=== PATIENT | female | born 1935 | race Caucasian/White ===

== ENCOUNTER 2017-03-22 11:42 | Inpatient (IN) ==
[2017-03-22] MEDS ORDERED: D5% in Water 1,000 ML IVC PRN (16:04)
[2017-03-22] MEDS ORDERED: Dextrose Gel 15 GM/37.5 ML TUBE PO PRN ×2 (16:04)
[2017-03-22] MEDS ORDERED: *HR* Dextrose 50 % in Water (Syg) 50 ML SYRINGE IVP PRN (16:04)
[2017-03-22] MEDS ORDERED: Acetaminophen 325 MG TABLET PO PRN (16:09)
[2017-03-22] MEDS ORDERED: Naloxone 0.4 MG/ML INJ IVP PRN (16:09)
--- NOTE | 2017-03-22 16:15 | Internal Med History&Physical ---
Date of Encounter: 03/22/17 Time of Encounter: 16:13 Assessment and Plan (1) Acute respiratory failure with hypoxia Current visit: Yes Status: Acute Likely secondary to an acute exacerbation of heart failure. Possibly combined given history of hypertension and recent history of multiple coronary stents placed and a defibrillator. We will continue to treat CHF as mentioned below. Wean down on oxygen as tolerated. Continue nebulizer treatments. (2) Anemia Current visit: Yes Status: Acute No obvious signs of bleeding but her tongue is darkened. She denies any bleeding or hematemesis or hemoptysis. She denies hematochezia or black tarry stools. Hemoglobin is 6.6. The only number have to compare to his back in 2014 and at that point her hemoglobin was 12.8. I will try to get records from [facility] from previous admissions. We will check iron studies. Check stools for fecal occult. She was started on 1 unit PRBCs at [facility]. We will check post transfusion CBC. Check every 6 H&H. INR is elevated at 4.8 which is concerning however there is no obvious sign of bleeding. No indication for FFP so vitamin K at the moment. start PPI. Hold aspirin. Hold xarelto. She may need a consult to GI if H/H continues to drop but I would like to have her records sent first form [facility]. Qualifiers: Anemia type: unspecified type Qualified Code(s): D64.9 - Anemia, unspecified (3) Afib Current visit: Yes Status: Acute Continue with rate control. The patient is paced. Hold anticoagulation given her low hemoglobin. Qualifiers: Atrial fibrillation type: unspecified Qualified Code(s): I48.91 - Unspecified atrial fibrillation (4) BALDEV (acute kidney injury) Current visit: Yes Status: Acute Possibly from cardiorenal etiology. We will diurese the patient and check labs in the morning. This is cardiorenal I would expect her creatinine to improve. She also has a UTI per report which could also contribute to this. (5) UTI (urinary tract infection) Current visit: Yes Status: Acute Continue ceftriaxone. She has already received a dose at [facility]. We will repeat her urinalysis here. Follow up on cultures from [facility]. Qualifiers: Urinary tract infection type: acute cystitis Hematuria presence: without hematuria Qualified Code(s): N30.00 - Acute cystitis without hematuria (6) CHF exacerbation Current visit: Yes Status: Acute Likely combined CHF exacerbation Continue with diuresis. We will start Lasix 40 mg twice a day IV. She has received 60 mg IV at the outside facility. Continue with O2 support and wean down as tolerated. We will add nebulizer treatments. Monitor I&O's. Low-salt diet. Fluid restriction. Check an echocardiogram. Qualifiers: Congestive heart failure type: unspecified Qualified Code(s): I50.9 - Heart failure, unspecified (7) Diabetes mellitus Current visit: Yes Status: Acute Hold oral antidiabetics. Start insulin settings. Continue with Accu-Cheks. Qualifiers: Diabetes mellitus type: type 2 Diabetes mellitus complication status: without complication Diabetes mellitus skilled nursing insulin use: without emt intermediate use Qualified Code(s): E11.9 - Type 2 diabetes mellitus without complications (8) Hypertension Current visit: Yes Status: Acute Resume home blood pressure medications Qualifiers: Hypertension type: essential hypertension Qualified Code(s): I10 - Essential (primary) hypertension (9) CAD (coronary artery disease) Current visit: Yes Status: Acute Apparently the patient recently had a couple stents placed. This was done at [facility]. We will obtain records. Resume the patient on her cardiac medications. Qualifiers: Coronary Disease-Associated Artery/Lesion type: [place] artery [place] vs. transplanted heart: [place] heart Associated angina: without angina Qualified Code(s): I25.10 - Atherosclerotic heart disease of [place] coronary artery without angina pectoris (10) DVT prophylaxis Current visit: Yes Status: Acute SCDs. Avoid pharmacological agents given low hemoglobin. Internal Medicine - H&P: HPI Chief complaint: Transferred from [facility] with anemia Admitted From: Direct Admit Plans for Post Hospital Care: Transfer [facility] History of present illness: Ms. Burrows is a 81 year old female with a history of coronary artery disease, atrial fibrillation, heart failure status post defibrillator, diabetes, hypertension, who presents to us as a transfer from [facility] where she had presented there from her nursing facility after she was noted to be short of breath with hypoxia in the 80s. She required supplemental oxygen and was put on some oxygen via nasal cannula and was transferred to the [facility]. She underwent workup that was significant for anemia with a hemoglobin of 6.6. White count was elevated at 12. Normal platelets. INR was 4.8. There was no reported GI bleeds or blood loss from anywhere. The patient denies that. According to the Nursing facility there is none of that as well. She does take xarelto for anticoagulation. The patient was put initially on CPAP and ABG was done with a pH of 7.41 and a PCO2 of 38 and a PaO2 of 84. She was eventually weaned down to 4 L of nasal cannula oxygen. Chest x-ray reportedly showed vascular congestion. She had lower extremity edema. She was given 60 mg of Lasix and transferred to our facility. She also had a UA significant tract infection she was given ceftriaxone for transfer. The rest of her workup included a BMP that showed potassium of 5.0. The line was 65 and creatinine of 1.62. Again I do not know what her baseline is and I have requested records. She denies any headache, fever, chills, nausea, vomiting, chest pain, abdominal pain, urinary symptoms, or neurological symptoms Past Med Surg Social Fam HX - Past Medical History Medical history: arthritis, atrial fibrillation, CHF, coronary artery disease, dementia, diabetes, GERD, hypertension, renal disease Psychiatric history: depression - Past Surgical History Surgical History: cholecystectomy, hysterectomy, pacemaker/AICD - Social History Smoking Status: Never smoker Smokeless Tobacco Status: No Alcohol use: none Drug use: none Internal Medicine - H&P: Meds Rivaroxaban [Xarelto] 20 mg PO DAILY #30 tablet 12/12/14 [Rx] Albuterol Sulfate [Albuterol Inhaler] 2 puff IH QID 2 Days inhaler 07/12/15 [Rx ] Allopurinol 07/12/15 [History] Aspirin 07/12/15 [History] Atenolol 07/12/15 [History] Benzonatate [Tessalon] 200 mg PO TID PRN #20 capsule 07/12/15 [Rx] Benzonatate [Tessalon] 200 mg PO TID PRN #20 capsule 07/12/15 [Rx] Cardizem CD 07/12/15 [History] Catapres 07/12/15 [History] Cozaar 07/12/15 [History] Cymbalta 07/12/15 [History] Doxycycline 100 mg PO BID 7 Days capsule 07/12/15 [Rx] Invokana 07/12/15 [History] Plavix 07/12/15 [History] Proair Hfa 07/12/15 [History] Ranitidine HCl 07/12/15 [History] Singulair 07/12/15 [History] Tramadol HCl 07/12/15 [History] Trilipix 07/12/15 [History] predniSONE [PredniSONE] 20 mg PO BID 5 Days tablet 07/12/15 [Rx] 3 Allergy/AdvReac Type Severity Reaction Status Date / Time morphine Allergy See Verified 03/22/17 15:07 Comments Penicillins AdvReac Rash Verified 03/22/17 15:07 All Systems PM: A 10-system review of systems was performed and is negative for pertinent findings except as documented above in the HPI. Review of systems: All systems reviewed are negative except for as mentioned above - Constitutional Vitals: Temp Pulse Resp BP Pulse Ox 98.3 F 60 16 156/76 100 03/22/17 14:33 03/22/17 15:24 03/22/17 14:33 03/22/17 14:33 03/22/17 15:23 Exam: GEN: NAD HEENT: AT, NC, No cyanosis, oral mucosa is moist, No JVD. Tongue with brownish discoloration Lymphatics: No lymphadenoapthy Eyes: Extrocular muscles intact, anicteric CVS:RRR. S1, S2, No m/r/g RESP: diminshed with crackles at bases ABD: Soft, NT, ND, +BS EXT: 2+ edema, No rashes, 2+ DP NEURO: Nonfocal, CN II-XII intact, No focal motor or sensory deficits Psych: Cooperative, Not anxious or depressed
[2017-03-22 17:04] LABS: INR 2.2; Prothrombin Time 23.9 Seconds (9.4-12.1)
[2017-03-22 17:07] LABS: Basophils % 0.3 %; Eosinophils # 0.1 K/mcL (0.0-0.6); Eosinophils % 0.5 %; Hematocrit 22.8 % (35.3-44.9); Immature Granulocytes % 0.3 % (0-4); Lymphocytes # 1.2 K/mcL (0.6-4.6); Lymphocytes % 10.3 %; Mean Corpuscular HGB Conc 30.7 g/dL (31.6-35.5); Mean Corpuscular Hemoglobin 26.8 pg (28.0-33.3); Mean Corpuscular Volume 87.4 fL (83.0-100.0); Mean Platelet Volume 10.2 fL (9.4-12.4); Monocytes # 1.3 K/mcL (0.0-1.3); Monocytes % 11.1 %; Neutrophils # 9.3 K/mcL (1.6-8.9); Nucleated Red Blood Cells 0.5 /100 WBC (0); Platelet Count 221 K/mcL (140-400); Red Blood Count 2.61 M/mcL (3.82-4.97); Red Cell Distribution Width 17.9 % (11.5-14.5); Segmented Neutrophils % 77.5 %
[2017-03-22 17:13] LABS: % Iron Saturation 7 % (15-50); Calcium 9.5 mg/dL (8.6-10.3); Iron 36 mcg/dL (50-170); Transferrin 388 mg/dL (203-362)
[2017-03-22 17:39] LABS: Folate 17.4 ng/mL (3.0-16.0)
[2017-03-22] MEDS: Insulin LISPRO 300 UNITS/3 ML VIAL SQ SCH ×2 (18:01→21:04)
[2017-03-22] MEDS: Pantoprazole 40 MG VIAL IVP SCH (18:10)
[2017-03-22 18:47] LABS: Bilirubin,Urine Negative (Negative); Blood,Urine Negative (Negative); Clarity,Urine Clear (Clear); Color,Urine Yellow (Yellow); Glucose,Urine (UA) Normal (Normal); Ketones,Urine Negative (Negative); Leukocyte Esterase,Urine Small (Negative); Nitrite,Urine Negative (Negative); PH,Urine 5.5 pH Units (5.0-8.0); Protein,Urine Negative (Neg-Trace); Specific Gravity,Urine 1.016 (1.010-1.025); Urobilinogen,Urine Normal (Normal)
[2017-03-22 18:52] LABS: Bacteria,Urine None Seen per hpf (None-Few); Hyaline Casts,Urine None Seen per lpf (None-Few); RBC,Urine 0-3 per hpf (0-3); Squamous Epithelial Cell,Urine Moderate per lpf (None-Few)
[2017-03-22] MEDS ORDERED: 0.9 % Sodium Chloride 250 ML ONE (20:07)
[2017-03-22] MEDS: Ipratropium/Albuterol Neb 3 ML IH SCH ×2 (20:27→21:06)
[2017-03-22] MEDS: Furosemide 40 MG/4 ML VIAL IVP SCH (21:06)
[2017-03-23 01:27] LABS: Basophils % 0.2 %; Eosinophils # 0.1 K/mcL (0.0-0.6); Eosinophils % 0.6 %; Hematocrit 23.2 % (35.3-44.9); Hemoglobin 7.3 g/dL (11.5-15.4); Immature Granulocytes % 0.4 % (0-4); Lymphocytes # 1.1 K/mcL (0.6-4.6); Lymphocytes % 12.1 %; Mean Corpuscular HGB Conc 31.5 g/dL (31.6-35.5); Mean Corpuscular Hemoglobin 27.1 pg (28.0-33.3); Mean Corpuscular Volume 86.2 fL (83.0-100.0); Mean Platelet Volume 9.6 fL (9.4-12.4); Monocytes # 1.1 K/mcL (0.0-1.3); Monocytes % 11.7 %; Nucleated Red Blood Cells 0.3 /100 WBC (0); Platelet Count 189 K/mcL (140-400); Red Blood Count 2.69 M/mcL (3.82-4.97); Red Cell Distribution Width 17.5 % (11.5-14.5)
[2017-03-23 01:32] LABS: INR 1.7; Prothrombin Time 18.3 Seconds (9.4-12.1)
[2017-03-23 01:43] LABS: Calcium 8.9 mg/dL (8.6-10.3); Potassium 3.5 mEq/L (3.5-5.1)
[2017-03-23] MEDS: Ipratropium/Albuterol Neb 3 ML IH SCH ×4 (03:13→21:46)
[2017-03-23] MEDS: Pantoprazole 40 MG VIAL IVP SCH ×2 (05:06→17:35)
[2017-03-23 06:31] LABS: Basophils % 0.5 %; Eosinophils # 0.1 K/mcL (0.0-0.6); Hematocrit 22.7 % (35.3-44.9); Immature Granulocytes % 0.5 % (0-4); Lymphocytes # 1.2 K/mcL (0.6-4.6); Lymphocytes % 13.4 %; Mean Corpuscular HGB Conc 30.8 g/dL (31.6-35.5); Mean Corpuscular Hemoglobin 26.6 pg (28.0-33.3); Mean Corpuscular Volume 86.3 fL (83.0-100.0); Mean Platelet Volume 10.3 fL (9.4-12.4); Monocytes # 1.1 K/mcL (0.0-1.3); Monocytes % 12.7 %; Neutrophils # 6.2 K/mcL (1.6-8.9); Nucleated Red Blood Cells 0.6 /100 WBC (0); Platelet Count 193 K/mcL (140-400); Red Blood Count 2.63 M/mcL (3.82-4.97); Red Cell Distribution Width 17.9 % (11.5-14.5); Segmented Neutrophils % 71.9 %
[2017-03-23] MEDS ORDERED: Furosemide 20 MG/2 ML VIAL IVP ONE (07:00)
[2017-03-23] MEDS ORDERED: 0.9 % Sodium Chloride 500 ML ONE (07:49)
[2017-03-23] MEDS: cefTRIAXone 1,000 MG in Water for inj. (sterile) 20 ML 10 ML IVP SCH (07:54)
[2017-03-23] MEDS: Furosemide 40 MG/4 ML VIAL IVP SCH ×2 (07:55→21:28)
[2017-03-23] MEDS: Insulin LISPRO 300 UNITS/3 ML VIAL SQ SCH ×4 (08:08→21:29)
--- NOTE | 2017-03-23 11:07 | Internal Med Progress Note ---
Date of Encounter: 03/23/17 Time of Encounter: 11:04 - Assessment and plan (1) Acute respiratory failure with hypoxia Current Visit: Yes Status: Acute Assessment and plan: Likely secondary to an acute exacerbation of heart failure. Possibly combined given history of hypertension and recent history of multiple coronary stents placed and a defibrillator. Echo results noted with normal EF at 55%. There is mild left ventricular diastolic dysfunction. Moderate tricuspid regurg. Mild pulmonic regurgitation. Severe pulmonary hypertension.. We will continue to treat CHF with IV Lasix 40 mg twice a day. Monitor her kidney function. Her kidney function did improve compared to yesterday. Wean down on oxygen as tolerated. Continue nebulizer treatments. (2) Anemia Current Visit: Yes Status: Acute Assessment and plan: No obvious signs of bleeding but her tongue is darkened. She denies any bleeding or hematemesis or hemoptysis. She denies hematochezia or black tarry stools. Hemoglobin is 7 today. The only number have to compare to his back in 2014 and at that point her hemoglobin was 12.8. I will try to get records from [facility] from previous admissions. Transfuse a unit PRBCs this morning. Consult GI. Check stools for fecal occult. She was started on 1 unit PRBCs at [facility]. Check every 6 hours H&H. INR was elevated at 4.8 which is concerning however there is no obvious sign of bleeding. It is 1.7 this morning. No indication for FFP so vitamin K at the moment. Continue with PPI. Hold aspirin. Hold xarelto. Awaiting records from [facility] Qualifiers: Anemia type: unspecified type Qualified Code(s): D64.9 - Anemia, unspecified (3) Afib Current Visit: Yes Status: Acute Assessment and plan: Continue with rate control. The patient is paced. Hold anticoagulation given her low hemoglobi Qualifiers: Atrial fibrillation type: unspecified Qualified Code(s): I48.91 - Unspecified atrial fibrillation (4) BALDEV (acute kidney injury) Current Visit: Yes Status: Acute Assessment and plan: Possibly from cardiorenal etiology. Improving with diuresis. Labs in the morning. Avoid other nephrotoxins other than Lasix. She also has a UTI per report which could also contribute to this (5) UTI (urinary tract infection) Current Visit: Yes Status: Acute Assessment and plan: Continue ceftriaxone. Follow up on cultures at [facility] Qualifiers: Urinary tract infection type: acute cystitis Hematuria presence: without hematuria Qualified Code(s): N30.00 - Acute cystitis without hematuria (6) CHF exacerbation Current Visit: Yes Status: Acute Assessment and plan: likely combined CHF exacerbation Continue with diuresis. Treatment is as above. Lasix 40 mg twice a day IV. Continue with O2 support and wean down as tolerated. We will add nebulizer treatments. Monitor I&O's. Low-salt diet. Fluid restriction Qualifiers: Congestive heart failure type: unspecified Qualified Code(s): I50.9 - Heart failure, unspecified (7) Diabetes mellitus Current Visit: Yes Status: Acute Assessment and plan: Continue with insulin sliding scale. Continue with Accu-Cheks. Qualifiers: Diabetes mellitus type: type 2 Diabetes mellitus complication status: without complication Diabetes mellitus termite treater helper insulin use: without termite treater helper use Qualified Code(s): E11.9 - Type 2 diabetes mellitus without complications (8) Hypertension Current Visit: Yes Status: Acute Assessment and plan: Blood pressure is stable. Continue amlodipine and metoprolol Qualifiers: Hypertension type: essential hypertension Qualified Code(s): I10 - Essential (primary) hypertension (9) CAD (coronary artery disease) Current Visit: Yes Status: Acute Assessment and plan: Apparently the patient recently had a couple stents placed. This was done at [facility]. I have asked for records to be sent again. Resume the patient on her cardiac medications but hold aspirin and Plavix due to low hemoglobin. Qualifiers: Coronary Disease-Associated Artery/Lesion type: [place] artery [place] vs. transplanted heart: [place] heart Associated angina: without angina Qualified Code(s): I25.10 - Atherosclerotic heart disease of [place] coronary artery without angina pectoris (10) DVT prophylaxis Current Visit: Yes Status: Acute Assessment and plan: SCDs - Subjective Interval history: No acute events. No signs of bleeding. Diuresed well. Unable to get records from [facility]. Transfused yesterday. - Constitutional Vitals: Temp Pulse Resp BP Pulse Ox 98.0 F 62 20 146/77 92 03/23/17 10:58 03/23/17 10:58 03/23/17 10:58 03/23/17 10:58 03/23/17 10:58 Exam: GEN: NAD CVS:RRR. S1, S2, systolic murmur 3/6 RESP: diminshed with crackles at bases ABD: Soft, NT, ND, +BS EXT: 2+ edema, No rashes, 2+ DP NEURO: Nonfocal, CN II-XII intact, No focal motor or sensory deficits Internal Medicine: Result - Labs CBC & Chem 7: 03/23/17 05:27 03/23/17 01:17 Labs: Short CBC 03/22/17 03/23/17 03/23/17 Range/Units 16:46 01:17 05:27 WBC 12.0 H 9.4 8.6 (4.3-11.1) K/mcL Hgb 7.0 L 7.3 L 7.0 L (11.5-15.4) g/dL Hct 22.8 L 23.2 L 22.7 L (35.3-44.9) % Plt Count 221 189 193 (140-400) K/mcL Neutrophils # 9.3 H 7.0 6.2 (1.6-8.9) K/mcL BMP 03/22/17 03/23/17 16:46 01:17 Sodium 141 141 Potassium 4.0 3.5 Chloride 108 H 108 H Carbon Dioxide 26 25 BUN 57 H 54 H Creatinine 1.37 H 1.25 H Glucose 150 H 180 H Calcium 9.5 8.9 Urine 03/22/17 Range/Units 18:31 Urine Color Yellow (Yellow) Urine Clarity Clear (Clear) Urine pH 5.5 (5.0-8.0) pH Units Ur Specific [place] 1.016 (1.010-1.025) Urine Protein Negative (Neg-Trace) mg/dL Urine Glucose (UA) Normal (Normal) mg/dL - ABG Interpretation ABG results: PT/INR, D-dimer PT 18.3 Seconds (9.4-12.1) H 03/23/17 01:17 - Impressions Impressions Chest X-Ray 03/22/17 16:07 IMPRESSION: Findings could represent mild pulmonary edema. D/ / Hermelindo Hartmann MD / Hermelindo Hartmann MD Interpreting Provider: Hermelindo Hartmann MD Echocardiogram 03/22/17 16:21 Impressions: LVEF 55%. Mild left ventricular diastolic dysfunction. RV is not well visualized. Moderate tricuspid regurgitation. Mild pulmonic regurgitation. Severe pulmonary hypertension. IVC is dilated. Pleural effusion is not well visualized on this study. Left Ventricular Wall Motion: Rest Echo Findings The mid inferior lateral wall was not visualized. All other wall segments showed normal motion. Findings: Study Quality * Technically sub-optimal due to clinical status - patient laying supine for exam. ECG Findings * Sinus rhythm with BBB. Probably intermittent ventricular pacing. Left Ventricle * LVEF 55%. * Mild left ventricular diastolic dysfunction. * Normal LV chamber size, wall thickness and function. Right Ventricle * RV is not well visualized. Left Atrium * Normal left atrial size. Right Atrium * Normal right atrial size. Aortic Valve * Aortic valve not well visualized. * No aortic stenosis. * Trace aortic regurgitation. Mitral Valve * Mild-moderate mitral annular calcification * No mitral regurgitation. * Normal mitral valve structure. * No mitral stenosis. Tricuspid Valve * Tricuspid valve not well visualized. * Moderate tricuspid regurgitation. * Estimated RA pressure is 15 mmHg. * Estimated RVSP is 69 mmHg. * Severe pulmonary hypertension. Pulmonic Valve * Pulmonic valve is not well visualized. * No pulmonic stenosis. * Mild pulmonic regurgitation. Pulmonary Artery * Pulmonary artery not well visualized. Aorta * Normally sized aortic root. Pericardium * There is no pericardial effusion present. Device lead * A device lead was visualized in the right atrium and right ventricle. Interatrial Septum * No evidence of PFO by color Doppler. IVC * The IVC is dilated. * < 50% respiratory change. - VTE Documentation of Mechanical Device: Intermittent pneumatic compression device Consult Discharge Plan - Plan Referrals: Marsha Nathan MD [Primary Care Provider] - (PATIENT IS FROM [facility] NO PCP APPOINTMENT NEEDED)
--- NOTE | 2017-03-23 11:41 | Gastroenterology Consult Note ---
<Noel Salcido - Last Filed: 03/23/17 11:39> Date of Encounter: 03/23/17 Time of Encounter: 11:00 - Assessment and plan (1) Anemia Status: Acute Assessment and plan: Hgb at [facility] was 6.6 with INR 4.8 and received one unit PRBC. On admission Hgb 7 with INR 2.2, today Hgb 7 with INR 1.7. She has received 2 units PRBC with one more to transfuse. Continue to monitor CBC and transfuse PRBC as needed. Plan for EGD tomorrow to r/o esophagitis, gastritis, duodenitis, PUD, MW tear, or AVM. NPO at midnight. Qualifiers: Anemia type: unspecified type Qualified Code(s): D64.9 - Anemia, unspecified (2) CHF exacerbation Status: Acute Assessment and plan: Management per primary team. Qualifiers: Congestive heart failure type: unspecified Qualified Code(s): I50.9 - Heart failure, unspecified (3) Acute respiratory failure with hypoxia Status: Acute Assessment and plan: Management per primary team. - Time Spent With Patient Total time spent is greater than 50% in coordination of care (as documented) at patient's floor/unit and/or counseling patient: GI History of Present Illness - Data of Consult Patient: new to practice Consult date: 03/23/17 Requesting Physician: Corbin Casarez DO - Consult Narrative Reason for consult: Upper GI bleed History of present illness: Ms. Burrows is a 81 year old female with PMHx of Afib, CHF, CAD, DM, GERD, HTN , heart failure s/p pacemaker/AICD who was transferred from [facility] where she had presented there from her nursing facility after she was noted to be short of breath with hypoxia in the 80s. Her Hgb at [facility] was 6.6 with INR 4.8 and received one unit PRBC. She denied fever, chills, chest pain, abdominal pain, nausea, vomiting, hematemesis, melena, or hematochezia. On admission Hgb 7 with INR 2.2, today Hgb 7 with INR 1.7. Procedures: Colonoscopy 08/24/2008 Dr. Rodríguez: Mixed hyperplastic and adenomatous polyps. NSAIDs: ASA Anticoagulation: Xarelto, Plavix Past Med Surg Social Fam HX - Past Medical History Medical history: arthritis, atrial fibrillation, CHF, coronary artery disease, dementia, diabetes, GERD, hypertension, renal disease Psychiatric history: depression - Past Surgical History Surgical History: cholecystectomy, hysterectomy, pacemaker/AICD - Social History Smoking Status: Never smoker Smokeless Tobacco Status: No Alcohol use: none Drug use: none - Gastrointestinal Gastrointestinal: Present: as per HPI - Constitutional Constitutional: as per HPI - EENT Eyes: as per HPI Ears: Present: as per HPI Nose, mouth and throat: Present: as per HPI - Cardiovascular Cardiovascular ROS: Present: as per HPI - Respiratory Respiratory IM: Present: as per HPI - Genitourinary Genitourinary: Absent: change in color, Urinary frequency - Neurological ROS Neurological GI: Present: as per HPI - Hematologic/Lymphatic Hematologic/Lymphatic pediatric: Present: as per HPI - Musculoskeletal Musculoskeletal ROS GI: Present: as per HPI - Integumentary Integumentary GI: Present: as per HPI - Psychiatric ROS Psychiatric GI: Present: as per HPI - Endocrine Endocrine IM: Present: as per HPI - Constitutional Vitals: Temp Pulse Resp BP Pulse Ox 98.0 F 62 18 146/77 98 03/23/17 10:58 03/23/17 10:58 03/23/17 11:15 03/23/17 10:58 03/23/17 11:15 General appearance: Present: cooperative, A&O X 3, no acute distress, answers questions appropriately - Head Head exam: Present: atraumatic, normocephalic - Eye Eye exam: Present: normal appearance, sclera anicteric - ENT ENT exam: Present: mucous membranes dry - Neck Neck exam general surgery: Present: normal inspection, trachea midline - Respiratory Respiratory exam: Present: decreased breath sounds, rhonchi - Cardiovascular Cardiovascular exam: Present: RRR, +S1, +S2 - GI/Abdominal GI/Abdominal exam: Present: soft, no peritoneal signs. Absent: distended, firm , guarding, tenderness - Rectal Rectal exam: Present: deferred - Extremities Exam Extremities exam: Present: warm - Neurological Exam Neurological exam: Present: no focal deficits - Psychiatric Psychiatric exam: Present: normal affect, normal mood - Skin Skin exam: Present: dry, intact, normal color, warm Results - Labs CBC & Chem 7: 03/23/17 05:27 03/23/17 01:17 Labs: Last Result Calcium 8.9 mg/dL (8.6-10.3) 03/23/17 01:17 Iron 36 mcg/dL (50-170) L 03/22/17 16:46 % Saturation 7 % (15-50) L 03/22/17 16:46 Transferrin 388 mg/dL (203-362) H 03/22/17 16:46 Ferritin 45 ng/ml (10-120) 03/22/17 16:46 Vitamin B12 282 pg/mL (250-1100) 03/22/17 16:46 Folate 17.4 ng/mL (3.0-16.0) H 03/22/17 16:46 Entire Visit Hgb 7.0 g/dL (11.5-15.4) L 03/23/17 05:27 Hct 22.7 % (35.3-44.9) L 03/23/17 05:27 PT 18.3 Seconds (9.4-12.1) H 03/23/17 01:17 Ferritin 45 ng/ml (10-120) 03/22/17 16:46 Folate 17.4 ng/mL (3.0-16.0) H 03/22/17 16:46 - ABG ABG results: PT/INR, D-dimer PT 18.3 Seconds (9.4-12.1) H 03/23/17 01:17 - Impressions Impressions Chest X-Ray 03/22/17 16:07 IMPRESSION: Findings could represent mild pulmonary edema. D/ / Hermelindo Hartmann MD / Hermelindo Hartmann MD Interpreting Provider: Hermelindo Hartmann MD Echocardiogram 03/22/17 16:21 Impressions: LVEF 55%. Mild left ventricular diastolic dysfunction. RV is not well visualized. Moderate tricuspid regurgitation. Mild pulmonic regurgitation. Severe pulmonary hypertension. IVC is dilated. Pleural effusion is not well visualized on this study. Left Ventricular Wall Motion: Rest Echo Findings The mid inferior lateral wall was not visualized. All other wall segments showed normal motion. Findings: Study Quality * Technically sub-optimal due to clinical status - patient laying supine for exam. ECG Findings * Sinus rhythm with BBB. Probably intermittent ventricular pacing. Left Ventricle * LVEF 55%. * Mild left ventricular diastolic dysfunction. * Normal LV chamber size, wall thickness and function. Right Ventricle * RV is not well visualized. Left Atrium * Normal left atrial size. Right Atrium * Normal right atrial size. Aortic Valve * Aortic valve not well visualized. * No aortic stenosis. * Trace aortic regurgitation. Mitral Valve * Mild-moderate mitral annular calcification * No mitral regurgitation. * Normal mitral valve structure. * No mitral stenosis. Tricuspid Valve * Tricuspid valve not well visualized. * Moderate tricuspid regurgitation. * Estimated RA pressure is 15 mmHg. * Estimated RVSP is 69 mmHg. * Severe pulmonary hypertension. Pulmonic Valve * Pulmonic valve is not well visualized. * No pulmonic stenosis. * Mild pulmonic regurgitation. Pulmonary Artery * Pulmonary artery not well visualized. Aorta * Normally sized aortic root. Pericardium * There is no pericardial effusion present. Device lead * A device lead was visualized in the right atrium and right ventricle. Interatrial Septum * No evidence of PFO by color Doppler. IVC * The IVC is dilated. * < 50% respiratory change. Consult Discharge Plan - Plan Instructions: Iron Supplements (By mouth), Acute Respiratory Distress Syndrome (DC), Anemia (GEN) Additional Instructions: Please follow up with your PCP and GI within 1 week of discharge If develop signs of bleeding or shortness of breath, please return to ED Stop taking your Xarelto and resume your aspirin and plavix Referrals: Marsha Nathan MD [Primary Care Provider] - (PATIENT IS FROM [facility] NO PCP APPOINTMENT NEEDED) James Still MD [Partnered Physician] - (SENT REQUEST ON 03-23-16 @ 1123) Prescriptions: Ferrous Sulfate 325 mg PO BIDWM #30 tablet <James Still - Last Filed: 03/31/17 13:40> Date of Encounter: 03/23/17 - Time Spent With Patient Total time spent is greater than 50% in coordination of care (as documented) at patient's floor/unit and/or counseling patient: GI History of Present Illness - Data of Consult Requesting Physician: Kiki Oquendo MD - Consult Narrative History of present illness: Ms. Burrows is a 81 year old female - Constitutional Vitals: Temp Pulse Resp BP Pulse Ox 97.7 F 60 16 141/72 94 03/26/17 11:32 03/26/17 11:32 03/26/17 11:32 03/26/17 11:32 03/26/17 11:32 Results - Labs CBC & Chem 7: 03/26/17 03:03 03/26/17 03:03 Labs: Last Result Calcium 9.2 mg/dL (8.6-10.3) 03/26/17 03:03 Iron 36 mcg/dL (50-170) L 03/22/17 16:46 % Saturation 7 % (15-50) L 03/22/17 16:46 Transferrin 388 mg/dL (203-362) H 03/22/17 16:46 Ferritin 45 ng/ml (10-120) 03/22/17 16:46 Vitamin B12 282 pg/mL (250-1100) 03/22/17 16:46 Folate 17.4 ng/mL (3.0-16.0) H 03/22/17 16:46 Entire Visit Hgb 8.6 g/dL (11.5-15.4) L 03/26/17 03:03 Hct 28.4 % (35.3-44.9) L 03/26/17 03:03 PT 18.3 Seconds (9.4-12.1) H 03/23/17 01:17 Ferritin 45 ng/ml (10-120) 03/22/17 16:46 Folate 17.4 ng/mL (3.0-16.0) H 03/22/17 16:46 - ABG ABG results: PT/INR, D-dimer PT 18.3 Seconds (9.4-12.1) H 03/23/17 01:17 - Attending Attestation I have personally performed a face to face evaluation on this patient. I have reviewed and agree with the care plan. History and Exam by me shows:Plan EGD and follow h/h to direct further transfusion.
[2017-03-23] MEDS: Diltiazem CD (24hr) 120 MG CAPSULE PO SCH (12:20)
[2017-03-23] MEDS: *HR* Amiodarone 200 MG TABLET PO SCH ×2 (12:20→21:28)
[2017-03-23] MEDS: amLODIPine 5 MG TABLET PO SCH (12:20)
[2017-03-23] MEDS: risperiDONE 0.25 MG TABLET PO SCH ×2 (12:22→21:28)
[2017-03-24] MEDS: Ipratropium/Albuterol Neb 3 ML IH SCH ×4 (03:37→22:27)
[2017-03-24] MEDS: Pantoprazole 40 MG VIAL IVP SCH ×2 (06:41→16:57)
--- NOTE | 2017-03-24 09:39 | Internal Med Progress Note ---
<Misael Guan - Last Filed: 03/24/17 14:58> Date of Encounter: 03/24/17 Time of Encounter: 09:32 - Assessment and plan (1) Acute blood loss anemia Current Visit: Yes Status: Acute Assessment and plan: Patient presented with Hb of 6.8 to [facility] and her blood count has remained near 7.0 despite 2 units of pRBC transfusion She did receive EGD which showed multiple non-bleeding angioectasias in the stomach which were treated with argon plasma coagulation GI recommended outpatient evaluation with capsule endoscopy to rule out other areas of AVM Will transfuse 3rd unit of blood today and recheck H/H after Replace iron and resume aspirin today as she was recently stented Continue protonix BID (2) Acute respiratory failure with hypoxia Current Visit: Yes Status: Acute Assessment and plan: Her breathing is better today and she is saturating at 90's on 2 L Likely secondary to anemia in setting of mild pulmonary edema Continue supportive measures with breathing treatments and supplemental oxygen (3) Afib Current Visit: Yes Status: Chronic Assessment and plan: Patient currently in NSR Will continue home rate control with Amiodarone, Cardizem and Lopressor Recommend holding her Xarelto upon discharge given her GIB CHASVASC = 6 and HASBLED = 3 Qualifiers: Atrial fibrillation type: unspecified Qualified Code(s): I48.91 - Unspecified atrial fibrillation (4) CAD (coronary artery disease) Current Visit: Yes Status: Chronic Assessment and plan: Not currently in chest pain; she recently received stent 1 month prior and received HAI to LAD Will resume ASA as her angioectasis were coagulated during EGD Continue home Lopressor, Zocor Qualifiers: Coronary Disease-Associated Artery/Lesion type: tribal artery [place] vs. transplanted heart: tribal heart Associated angina: without angina Qualified Code(s): I25.10 - Atherosclerotic heart disease of tribal coronary artery without angina pectoris (5) CKD (chronic kidney disease), stage III Current Visit: Yes Status: Chronic Assessment and plan: Creatinine is at her baseline Will continue to avoid nephrotoxic agents and monitor Cr and electrolytes (6) Non-insulin dependent type 2 diabetes mellitus Current Visit: Yes Status: Chronic Assessment and plan: Continue on low dose SSI ACHS accuchecks (7) Hypertension Current Visit: Yes Status: Acute Assessment and plan: Blood pressures have been stable Continue home Lopressor, Cardizem, Norvasc Qualifiers: Hypertension type: essential hypertension Qualified Code(s): I10 - Essential (primary) hypertension (8) DVT prophylaxis Current Visit: Yes Status: Acute Assessment and plan: SCDs for now; will discuss if she would like to be on Xarelto correction - Subjective Interval history: Pt seen and examined. She states she has no issues this morning with her breathing and only complains of chronic right knee pain. Denies any problems with chest pain, nausea, vomiting, diarrhea. States she has never had issues with bleeding. - Constitutional Vitals: Temp Pulse Resp BP Pulse Ox 99.2 F 60 17 120/68 95 03/24/17 07:42 03/24/17 07:42 03/24/17 07:42 03/24/17 07:42 03/24/17 07:42 General appearance: Present: cooperative, A&O X 3, pleasant, no acute distress, answers questions appropriately - Head Head exam: Present: atraumatic, normocephalic - Eye Eye exam: Present: PERRL, conjuntiva pink, sclera anicteric Additional comments: left pupil is more constricted but reacts appropriately - Neck Neck exam general surgery: Present: supple, trachea midline. Absent: lymphadenopathy - Respiratory Respiratory exam: Present: decreased breath sounds. Absent: accessory muscle use, rales, rhonchi, wheezes - Cardiovascular Cardiovascular exam: Present: RRR, +S1, +S2. Absent: diastolic murmur, gallop, rubs, systolic murmur - GI/Abdominal GI/Abdominal exam: Present: normal bowel sounds, soft, no peritoneal signs. Absent: distended, tenderness - Extremities Exam Extremities exam: Present: warm, radial pulses palpable and symmetrical. Absent : calf tenderness, cyanotic, pedal edema - Neurological Exam Neurological exam: Present: alert, oriented X3, no focal deficits. Absent: facial droop, speech deficit - Skin Skin exam: Present: dry, intact Internal Medicine: Result - Labs CBC & Chem 7: 03/23/17 05:27 03/23/17 01:17 - ABG Interpretation ABG results: PT/INR, D-dimer PT 18.3 Seconds (9.4-12.1) H 03/23/17 01:17 - VTE Documentation of Mechanical Device: Intermittent pneumatic compression device Consult Discharge Plan - Plan Referrals: Butt,Aasia, MD [Primary Care Provider] - (PATIENT IS FROM [facility] NO PCP APPOINTMENT NEEDED) James Still MD [Partnered Physician] - (SENT REQUEST ON 03-23-16 @ 1123) <Kiki Oquendo - Last Filed: 03/24/17 16:19> Date of Encounter: 03/24/17 - Constitutional Vitals: Temp Pulse Resp BP Pulse Ox 98.0 F 68 16 153/75 95 03/24/17 12:59 03/24/17 12:59 03/24/17 15:32 03/24/17 12:59 03/24/17 15:32 Internal Medicine: Result - Labs CBC & Chem 7: 03/24/17 14:58 03/23/17 01:17 Labs: Short CBC 03/24/17 Range/Units 14:58 Hgb 8.3 L (11.5-15.4) g/dL Hct 26.4 L (35.3-44.9) % - ABG Interpretation ABG results: PT/INR, D-dimer PT 18.3 Seconds (9.4-12.1) H 03/23/17 01:17 - Attending Attestation I examined this patient and my medical decision-making was reviewed with the Resident Physician Dr. Guan. I agree with the documented findings, disposition and treatment plan as described except to the extent set forth below. Ms. Burrows is a 81 year old female with a history of coronary artery disease, atrial fibrillation, heart failure status post defibrillator, diabetes, hypertension, who presents to us as a transfer from [facility] where she had presented there from her nursing facility after she was noted to be short of breath with hypoxia in the 80s. She was also severely anemic with Hb @ 6.6. She did go for EGD showed multiple non bleding angioectasias in stomach, which were treated with argon plasma coagulation. She feels lot better now Abd: Soft, NT Ext: No edema Chest: DBS b/l, No crackles no wheezing a/p 1. Acute anemia due to GI bleed s/p EGD May need endo capsular study as an out pt Will resume ASA in AM..If Hb stays stable in 2-3 days, ok to start her on Plavix too she had 2 stents placed in last month at [facility] cont close monitoring 2. Paroxysmal A fib Rate controlled with Amiodarone not a candidate for anti coag with Xarelto due to high risk fo GI bleed talked to the family about this medically stable to go to regular tele floor
[2017-03-24] MEDS: Insulin LISPRO 300 UNITS/3 ML VIAL SQ SCH ×4 (11:07→20:47)
[2017-03-24] MEDS: Diltiazem CD (24hr) 120 MG CAPSULE PO SCH (11:07)
[2017-03-24] MEDS: amLODIPine 5 MG TABLET PO SCH (11:08)
[2017-03-24] MEDS: risperiDONE 0.25 MG TABLET PO SCH ×2 (11:08→20:45)
[2017-03-24] MEDS: *HR* Amiodarone 200 MG TABLET PO SCH ×2 (11:08→20:45)
[2017-03-24] MEDS: cefTRIAXone 1,000 MG in Water for inj. (sterile) 20 ML 10 ML IVP SCH (11:11)
[2017-03-24] MEDS: Furosemide 40 MG/4 ML VIAL IVP SCH ×2 (11:11→20:44)
--- NOTE | 2017-03-24 12:54 | Anesthesia Evaluation PreOp ---
Date of Encounter: 03/24/17 Time of Encounter: 13:00 - Past History Planned Operation: EGD Cardiac History: HTN, Hyperlipidemia, Arrhythmia (AFib Chronic), Cardiac Stent, Pacemaker/ICD (Defibrilator), Other (CAD, Anemia transfused 3 units) Pulmonary History: COPD MACHINE RIGGER History: Denies Any Significant HX Other Medical History: Renal (BALDEV), Diabetes Type II Anesthesia History: No Prior Anesthetic Complications : No Alcohol Use: none Drug use: none Medications and Allergies Acetaminophen [Tylenol Arthritis] 650 mg PO Q6H PRN 03/22/17 [History] Amiodarone [Cordarone] 400 mg PO BID 03/22/17 [History] Aspirin 81 mg PO DAILY 03/22/17 [History] Clopidogrel [Plavix] 75 mg PO DAILY 03/22/17 [History] DULoxetine [Cymbalta] 90 mg PO DAILY 03/22/17 [History] Diltiazem HCl [Diltiazem ER] 120 mg PO DAILY 03/22/17 [History] Ergocalciferol (VITAMIN D2) [Vitamin D2] 50,000 unit PO GONZALEZ 03/22/17 [History] Glimepiride [Amaryl] 4 mg PO DAILY 03/22/17 [History] Mag Hydrox/Al Hydrox/Simeth [Antacid Suspension] 30 ml PO Q4H PRN 03/22/17 [ History] Metoprolol [Lopressor] 50 mg PO BID 03/22/17 [History] Nitroglycerin [Nitrostat] 0.4 mg SL Q5M PRN 03/22/17 [History] Pravastatin Sodium 10 mg PO HS 03/22/17 [History] Ranitidine HCl [Zantac] 300 mg PO DAILY 03/22/17 [History] Rivaroxaban [Xarelto] 15 mg PO 1700 03/22/17 [History] Zolpidem [Ambien] 5 mg PO HS PRN 03/22/17 [History] amLODIPine [Norvasc] 5 mg PO DAILY 03/22/17 [History] risperiDONE [RisperDAL] 0.25 mg PO BID 03/22/17 [History] 3 Allergy/AdvReac Type Severity Reaction Status Date / Time morphine Allergy See Verified 03/22/17 15:07 Comments Penicillins AdvReac Rash Verified 03/22/17 15:07 - Meds/Allergy Pre-op Review Medications Reviewed: Yes Allergies Reviewed: Yes Beta Blockers on Current Med List: Yes (on metoprolol) Anesthesia Results - Labs 03/23/17 05:27 03/23/17 01:17 - Imaging EKG: report reviewed (AFib) Additional studies: LVEF 55%, pulm HTN Anesthesia Exam O2 Sat Weight 90.8 kg O2 Sat by Pulse Oximetry 93 O2 Sat by Pulse Oximetry 95 O2 Sat by Pulse Oximetry 92 O2 Sat by Pulse Oximetry 94 O2 Sat by Pulse Oximetry 97 O2 Sat by Pulse Oximetry 95 O2 Sat by Pulse Oximetry 96 O2 Sat by Pulse Oximetry 96 O2 Sat by Pulse Oximetry 93 O2 Sat by Pulse Oximetry 93 O2 Sat by Pulse Oximetry 94 O2 Sat by Pulse Oximetry 95 O2 Sat by Pulse Oximetry 95 Vital Signs Temp Pulse Resp BP Pulse Ox 98.3 F 60 18 156/76 98 03/22/17 14:32 03/22/17 14:32 03/22/17 14:32 03/22/17 14:32 03/22/17 14:32 Height: 5'5 Weight: 200 lbs NPO (# of Hours): MN Pain Scale: 0 - HEENT Pupil (Motor): Pupils equal, EOMI Mallampati: III Teeth: Normal Oral Opening: Greater than 3 - MACHINE RIGGER LOC: Oriented MACHINE RIGGER Motor: Normal RUE, Normal LUE, Normal RLE, Normal LLE, Normal Face MACHINE RIGGER Sensory: Normal: RUE, LUE, RLE, LLE, Face - Cardiac Rhythm: Irregular JVD: No Carotid Bruit: No - Pulmonary Breath Sounds: bilateral Clear Respiratory Effort: Symmetrical Anesthesia Assess/Plan ASA Score: 3 (AFib HTN DM COPD) Modified [place] Scale for Level of Consciousness: Cooperative, oriented, and tranquil Anesthetic Plan: MAC Monitoring Plan: Standard Monitors Recovery Plan: Other (Discussed MAC, agrees to proceed)
[2017-03-24] MEDS ORDERED: 0.9 % Sodium Chloride 1,000 ML IVC SCH (13:15)
[2017-03-24] MEDS ORDERED: *HR* Propofol 200 MG/20 ML VIAL IVP ONE (13:26)
--- NOTE | 2017-03-24 14:56 | Anesthesia Evaluation Post Op ---
Date of Encounter: 03/24/17 Time of Encounter: 13:50 - Vital Signs Vital Signs: Vital Signs/O2 Sat, Most Current Temp Pulse Resp BP Pulse Ox 98.0 F 68 16 153/75 93 03/24/17 12:59 03/24/17 12:59 03/24/17 12:59 03/24/17 12:59 03/24/17 12:59 - Lungs Lungs: Clear Ascult./Percussion - Airway Airway: Non-obstructed - Cardiovascular Regular Rate - Mental Status Mental Status: Asleep with brisk response to light stimulation - Nausea Vomiting Nausea Vomiting: Not Present - Hydration Hydration: NPO, Has not voided - Discharge PostOp Status: Transfer Patient to floor (awake, VSS, no anesthetic complications)
[2017-03-24 15:34] LABS: Hematocrit 26.4 % (35.3-44.9); Hemoglobin 8.3 g/dL (11.5-15.4)
[2017-03-25 03:38] LABS: Basophils % 0.3 %; Eosinophils # 0.2 K/mcL (0.0-0.6); Eosinophils % 2.5 %; Hematocrit 27.4 % (35.3-44.9); Hemoglobin 8.6 g/dL (11.5-15.4); Immature Granulocytes % 0.3 % (0-4); Lymphocytes % 12.3 %; Mean Corpuscular HGB Conc 31.4 g/dL (31.6-35.5); Mean Corpuscular Hemoglobin 27.5 pg (28.0-33.3); Mean Corpuscular Volume 87.5 fL (83.0-100.0); Mean Platelet Volume 9.7 fL (9.4-12.4); Monocytes # 1.1 K/mcL (0.0-1.3); Monocytes % 13.9 %; Neutrophils # 5.7 K/mcL (1.6-8.9); Nucleated Red Blood Cells 0.4 /100 WBC (0); Platelet Count 187 K/mcL (140-400); Red Blood Count 3.13 M/mcL (3.82-4.97); Red Cell Distribution Width 17.2 % (11.5-14.5); Segmented Neutrophils % 70.7 %
[2017-03-25 03:56] LABS: BUN/Creatinine Ratio 31 (6-26); Blood Urea Nitrogen 28 mg/dL (8-23); Calcium 8.7 mg/dL (8.6-10.3); Carbon Dioxide 29 mEq/L (23-29); Chloride 102 mEq/L (98-107); Glucose 112 mg/dL (70-105); Osmolality,Calculated 294 (280-300); Potassium 3.1 mEq/L (3.5-5.1); Sodium 139 mEq/L (136-145); eGFR For African Americans > 60 (> 60); eGFR For Non-African Americans 60 (> 60)
[2017-03-25] MEDS: Ipratropium/Albuterol Neb 3 ML IH SCH ×4 (04:22→21:59)
[2017-03-25] MEDS: Pantoprazole 40 MG VIAL IVP SCH ×2 (06:12→17:49)
[2017-03-25] MEDS: Insulin LISPRO 300 UNITS/3 ML VIAL SQ SCH ×4 (08:08→21:41)
[2017-03-25] MEDS: Diltiazem CD (24hr) 120 MG CAPSULE PO SCH (08:14)
[2017-03-25] MEDS: risperiDONE 0.25 MG TABLET PO SCH ×2 (08:15→21:40)
[2017-03-25] MEDS: *HR* Amiodarone 200 MG TABLET PO SCH ×2 (08:15→22:27)
[2017-03-25] MEDS: amLODIPine 5 MG TABLET PO SCH (08:15)
[2017-03-25] MEDS: Aspirin 81 MG TAB.CHEW PO SCH (08:15)
[2017-03-25] MEDS: Furosemide 40 MG/4 ML VIAL IVP SCH ×2 (08:15→21:41)
--- NOTE | 2017-03-25 09:07 | Internal Med Progress Note ---
<Misael Guan - Last Filed: 03/25/17 10:09> Date of Encounter: 03/25/17 Time of Encounter: 09:05 - Assessment and plan (1) Acute blood loss anemia Current Visit: Yes Status: Acute Assessment and plan: Patient's Hb is stable at 8.6 from 8.3 yesterday after 2 units of pRBC She did receive EGD which showed multiple non-bleeding angioectasias in the stomach which were treated with argon plasma coagulation GI recommended outpatient evaluation with capsule endoscopy to rule out other areas of AVM Replace iron and resume aspirin today as she was recently stented; will talk to patient and family about Xarelto Continue protonix BID (2) Acute respiratory failure with hypoxia Current Visit: Yes Status: Acute Assessment and plan: Her breathing is better today and she is saturating at 90's on 3 L, will try to wean off oxygen as she is on none at home Likely secondary to anemia in setting of mild pulmonary edema Continue supportive measures with breathing treatments and supplemental oxygen (3) Afib Current Visit: Yes Status: Chronic Assessment and plan: Patient currently in NSR Will continue home rate control with Amiodarone, Cardizem and Lopressor Recommend holding her Xarelto upon discharge given her GIB CHASVASC = 6 and HASBLED = 3 Qualifiers: Atrial fibrillation type: unspecified Qualified Code(s): I48.91 - Unspecified atrial fibrillation (4) CAD (coronary artery disease) Current Visit: Yes Status: Chronic Assessment and plan: Not currently in chest pain; she recently received stents 1 month prior and received HAI to LAD Will resume ASA as her angioectasis were coagulated during EGD; consider resuming Plavix if Hb remains stable Continue home Lopressor, Zocor Qualifiers: Coronary Disease-Associated Artery/Lesion type: [place] artery [place] vs. transplanted heart: [place] heart Associated angina: without angina Qualified Code(s): I25.10 - Atherosclerotic heart disease of [place] coronary artery without angina pectoris (5) CKD (chronic kidney disease), stage III Current Visit: Yes Status: Chronic Assessment and plan: Creatinine improving to 0.90 Will continue to avoid nephrotoxic agents and monitor Cr and electrolytes (6) Non-insulin dependent type 2 diabetes mellitus Current Visit: Yes Status: Chronic Assessment and plan: Continue on low dose SSI ACHS accuchecks Blood sugars have been well controlled (7) Hypertension Current Visit: Yes Status: Chronic Assessment and plan: Blood pressures have been stable Continue home Lopressor, Cardizem, Norvasc Qualifiers: Hypertension type: essential hypertension Qualified Code(s): I10 - Essential (primary) hypertension (8) DVT prophylaxis Current Visit: Yes Status: Acute Assessment and plan: SCDs for now; will discuss if she would like to be on Xarelto penitentiary - Subjective Interval history: Pt seen and examined. Her breathing is doing well and she has no pain anywhere. She states she has no issues with any bleeding and had 2 episodes of normal appearing bowel movements yesterday. She denies any nausea, vomiting, diarrhea, fever, chills. - Constitutional Vitals: Temp Pulse Resp BP Pulse Ox 98.1 F 64 16 154/81 92 03/25/17 07:51 03/25/17 07:51 03/25/17 07:51 03/25/17 07:51 03/25/17 07:51 General appearance: Present: cooperative, A&O X 3, pleasant, no acute distress, answers questions appropriately - Head Head exam: Present: atraumatic, normocephalic - Eye Eye exam: Present: PERRL, conjuntiva pink, sclera anicteric - Neck Neck exam general surgery: Present: supple, trachea midline. Absent: lymphadenopathy - Respiratory Respiratory exam: Present: CTAB. Absent: accessory muscle use, rales, rhonchi, wheezes - Cardiovascular Cardiovascular exam: Present: RRR, +S1, +S2. Absent: diastolic murmur, gallop, rubs, systolic murmur - GI/Abdominal GI/Abdominal exam: Present: normal bowel sounds, soft, no peritoneal signs. Absent: distended, tenderness - Extremities Exam Extremities exam: Present: warm, radial pulses palpable and symmetrical. Absent : calf tenderness, cyanotic, pedal edema - Neurological Exam Neurological exam: Present: alert, no focal deficits. Absent: facial droop, speech deficit - Skin Skin exam: Present: dry, intact Internal Medicine: Result - Labs CBC & Chem 7: 03/25/17 03:13 03/25/17 03:13 Labs: Short CBC 03/24/17 03/25/17 Range/Units 14:58 03:13 WBC 8.0 (4.3-11.1) K/mcL Hgb 8.3 L 8.6 L (11.5-15.4) g/dL Hct 26.4 L 27.4 L (35.3-44.9) % Plt Count 187 (140-400) K/mcL Neutrophils # 5.7 (1.6-8.9) K/mcL [facility] 03/25/17 03:13 Sodium 139 Potassium 3.1 L Chloride 102 Carbon Dioxide 29 BUN 28 H Creatinine 0.90 Glucose 112 H Calcium 8.7 - ABG Interpretation ABG results: PT/INR, D-dimer PT 18.3 Seconds (9.4-12.1) H 03/23/17 01:17 - VTE Documentation of Mechanical Device: Intermittent pneumatic compression device Consult Discharge Plan - Plan Referrals: Marsha Nathan MD [Primary Care Provider] - (PATIENT IS FROM [facility] NO PCP APPOINTMENT NEEDED) James Still MD [Partnered Physician] - (SENT REQUEST ON 03-23-16 @ [phone]) <Kiki Oquendo - Last Filed: 03/25/17 16:13> Date of Encounter: 03/25/17 - Constitutional Vitals: Temp Pulse Resp BP Pulse Ox 97.6 F 62 16 139/76 97 03/25/17 11:16 03/25/17 11:16 03/25/17 11:16 03/25/17 11:16 03/25/17 11:16 Internal Medicine: Result - Labs CBC & Chem 7: 03/25/17 03:13 03/25/17 03:13 Labs: Short CBC 03/25/17 Range/Units 03:13 WBC 8.0 (4.3-11.1) K/mcL Hgb 8.6 L (11.5-15.4) g/dL Hct 27.4 L (35.3-44.9) % Plt Count 187 (140-400) K/mcL Neutrophils # 5.7 (1.6-8.9) K/mcL [facility] 03/25/17 03:13 Sodium 139 Potassium 3.1 L Chloride 102 Carbon Dioxide 29 BUN 28 H Creatinine 0.90 Glucose 112 H Calcium 8.7 - ABG Interpretation ABG results: PT/INR, D-dimer PT 18.3 Seconds (9.4-12.1) H 03/23/17 01:17 - Attending Attestation I examined this patient and my medical decision-making was reviewed with the Resident Physician Dr. Guan. I agree with the documented findings, disposition and treatment plan as described except to the extent set forth below. Ms. Burrows is a 81 year old female with a history of coronary artery disease, atrial fibrillation, heart failure status post defibrillator, diabetes, hypertension, who presents to us as a transfer from [facility] where she had presented there from her nursing facility after she was noted to be short of breath with hypoxia in the 80s. She was also severely anemic with Hb @ 6.6. She did go for EGD showed multiple non bleding angioectasias in stomach, which were treated with argon plasma coagulation. She feels lot better now Abd: Soft, NT Ext: No edema Chest: DBS b/l, No crackles no wheezing a/p 1. Acute anemia due to GI bleed s/p EGD Improved and stable Hb @ 8.6 after 3 U PRBC May need endo capsular study as an out pt Will resume ASA in AM..If Hb stays stable in 2-3 days, ok to start her on Plavix too she had 2 stents placed in last month at [facility] cont close monitoring 2. Paroxysmal A fib Rate controlled with Amiodarone not a candidate for anti coag with Xarelto due to high risk fo GI bleed talked to the family about this Possible d/c back to ECF in AM medically stable to go to regular tele floor
[2017-03-26 04:00] LABS: Basophils % 0.4 %; Eosinophils # 0.3 K/mcL (0.0-0.6); Eosinophils % 3.4 %; Hematocrit 28.4 % (35.3-44.9); Hemoglobin 8.6 g/dL (11.5-15.4); Immature Granulocytes % 0.3 % (0-4); Lymphocytes # 1.2 K/mcL (0.6-4.6); Lymphocytes % 16.1 %; Mean Corpuscular HGB Conc 30.3 g/dL (31.6-35.5); Mean Corpuscular Hemoglobin 26.7 pg (28.0-33.3); Mean Corpuscular Volume 88.2 fL (83.0-100.0); Mean Platelet Volume 9.9 fL (9.4-12.4); Monocytes # 0.9 K/mcL (0.0-1.3); Monocytes % 12.4 %; Platelet Count 187 K/mcL (140-400); Red Blood Count 3.22 M/mcL (3.82-4.97); Segmented Neutrophils % 67.4 %
[2017-03-26 04:10] LABS: BUN/Creatinine Ratio 21 (6-26); Blood Urea Nitrogen 18 mg/dL (8-23); Calcium 9.2 mg/dL (8.6-10.3); Carbon Dioxide 29 mEq/L (23-29); Chloride 102 mEq/L (98-107); Glucose 122 mg/dL (70-105); Osmolality,Calculated 289 (280-300); Potassium 3.8 mEq/L (3.5-5.1); Sodium 138 mEq/L (136-145); eGFR For African Americans > 60 (> 60); eGFR For Non-African Americans > 60 (> 60)
[2017-03-26] MEDS: Ipratropium/Albuterol Neb 3 ML IH SCH ×2 (04:17→10:41)
[2017-03-26] MEDS: Pantoprazole 40 MG VIAL IVP SCH (05:24)
--- NOTE | 2017-03-26 08:40 | Discharge Summary ---
<Misael Guan - Last Filed: 03/26/17 13:06> Date of Encounter: 03/26/17 Time of Encounter: 08:35 - Discharge Diagnosis (1) Acute blood loss anemia Priority: Primary Status: Acute (2) Acute respiratory failure with hypoxia Priority: Secondary Status: Acute (3) Afib Priority: Secondary Status: Chronic Qualifiers: Atrial fibrillation type: unspecified Qualified Code(s): I48.91 - Unspecified atrial fibrillation (4) CAD (coronary artery disease) Priority: Secondary Status: Chronic Qualifiers: Coronary Disease-Associated Artery/Lesion type: [place] artery [place] vs. transplanted heart: [place] heart Associated angina: without angina Qualified Code(s): I25.10 - Atherosclerotic heart disease of [place] coronary artery without angina pectoris (5) CKD (chronic kidney disease), stage III Priority: Secondary Status: Chronic (6) Non-insulin dependent type 2 diabetes mellitus Priority: Secondary Status: Chronic (7) Hypertension Priority: Secondary Status: Chronic Qualifiers: Hypertension type: essential hypertension Qualified Code(s): I10 - Essential (primary) hypertension (8) DVT prophylaxis Priority: Secondary Status: Acute - Discharge Medications Prescriptions: Ferrous Sulfate 325 mg PO BIDWM #30 tablet Home Medications: Acetaminophen [Tylenol Arthritis] 650 mg PO Q6H PRN 03/22/17 [History] Amiodarone [Cordarone] 400 mg PO BID 03/22/17 [History] Aspirin 81 mg PO DAILY 03/22/17 [History] Clopidogrel [Plavix] 75 mg PO DAILY 03/22/17 [History] DULoxetine [Cymbalta] 90 mg PO DAILY 03/22/17 [History] Diltiazem HCl [Diltiazem ER] 120 mg PO DAILY 03/22/17 [History] Ergocalciferol (VITAMIN D2) [Vitamin D2] 50,000 unit PO GONZALEZ 03/22/17 [History] Glimepiride [Amaryl] 4 mg PO DAILY 03/22/17 [History] Mag Hydrox/Al Hydrox/Simeth [Antacid Suspension] 30 ml PO Q4H PRN 03/22/17 [ History] Metoprolol [Lopressor] 50 mg PO BID 03/22/17 [History] Nitroglycerin [Nitrostat] 0.4 mg SL Q5M PRN 03/22/17 [History] Pravastatin Sodium 10 mg PO HS 03/22/17 [History] Ranitidine HCl [Zantac] 300 mg PO DAILY 03/22/17 [History] Zolpidem [Ambien] 5 mg PO HS PRN 03/22/17 [History] amLODIPine [Norvasc] 5 mg PO DAILY 03/22/17 [History] risperiDONE [RisperDAL] 0.25 mg PO BID 03/22/17 [History] Ferrous Sulfate 325 mg PO BIDWM #30 tablet 03/26/17 [Rx] Allergies/Adverse Reactions: 3 Allergy/AdvReac Type Severity Reaction Status Date / Time morphine Allergy See Verified 03/22/17 15:07 Comments Penicillins AdvReac Rash Verified 03/22/17 15:07 Date of admission: 03/22/17 18:07 Primary care physician: Marsha Nathan MD Consults: 03/22/17 16:06 Consult to Occupational Therapy [CONS] Routine Comment: Evaluate, develop and implement POC Reason for Consult: therapy/placement needs Consult to Physical Therapy [CONS] Routine Comment: Evaluate, develop and implement POC Reason for Consult: PT eval 03/23/17 07:30 Consult to Gastroenterology [CONS] Routine Consulting Provider: Gastroenterology Debbie Reason for Consult: suspected upper GI bleed. low H/H Call Completed: No Discharging clinician: Misael Guan Anticipated date of discharge: 03/26/17 - Patient Status Disposition: Transfer SNF Condition: Fair Functional capacity at discharge: independent ambulation Overall status at discharge: patient is progressing back to baseline - Discharge Instructions Instructions: Iron Supplements (By mouth), Acute Respiratory Distress Syndrome (DC), Anemia (GEN) Follow Up With: Marsha Nathan MD [Primary Care Provider] - (PATIENT IS FROM [facility], [facility] NO PCP APPOINTMENT NEEDED) James Still MD [Partnered Physician] - (SENT REQUEST ON 03-23-16 @ [id number]) Additional Instructions: Please follow up with your PCP and GI within 1 week of discharge If develop signs of bleeding or shortness of breath, please return to ED Stop taking your Xarelto and resume your aspirin and plavix - Diet and Activity Activity: increase activity as tolerated Diet: low fat, low cholesterol Hospital course: Ms. Burrows is a 81 year old female who presented to [facility] with shortness of breath. She was found to have Hb of 6.6 and INR of 4.8 as she was on Xarelto for AFib. She also recently had stents placed last month and is on DAPT with ASA and Plavix. She actually denied any signs of GI bleed and had no bleeding issues while on Xarelto in the past. She does reside at [facility] given her dementia. She was transfused 2 units of blood but her Hb remained around 7.0, so GI was consulted. They performed EGD and found multiple non-bleeding angioectasias in the stomach which were treated with argon plasma coagulation. They recommended on outpatient follow up for possible capsule endoscopy. Patient tolerated the procedure well and had no signs of bleeding afterwards. She was found to be iron deficient and started on iron replacement tablets. Her Hb remained stable at 8.6 the following days. Patient's family was informed about stopping Xarelto and they agreed that she should stop taking this. Her ASA was resumed and she will start taking her Plavix again upon discharge given her recent LHC with stent placement. Patient states her breathing was doing fine and will not need any oxygen upon discharge back to her SNF. - Time Spent with Patient Total time spent providing and/or coordinating discharge services: - Constitutional Vitals: Temp Pulse Resp BP Pulse Ox 99.1 F 60 18 146/78 90 03/26/17 07:52 03/26/17 07:52 03/26/17 07:52 03/26/17 07:52 03/26/17 07:52 General appearance: Present: cooperative, pleasant, no acute distress, answers questions appropriately - Head Head exam: Present: atraumatic, normocephalic - Eye Eye exam: Present: PERRL, conjuntiva pink, sclera anicteric - Neck Neck exam general surgery: Present: supple, trachea midline. Absent: lymphadenopathy - Respiratory Respiratory exam: Present: CTAB. Absent: accessory muscle use, rales, rhonchi, wheezes - Cardiovascular Cardiovascular exam: Present: RRR, +S1, +S2. Absent: diastolic murmur, gallop, rubs, systolic murmur - GI/Abdominal GI/Abdominal exam: Present: normal bowel sounds, soft, no peritoneal signs. Absent: distended, tenderness - Extremities Exam Extremities exam: Present: warm, radial pulses palpable and symmetrical. Absent : calf tenderness, cyanotic, pedal edema - Neurological Exam Neurological exam: Present: alert, no focal deficits. Absent: facial droop, speech deficit - Skin Skin exam: Present: dry, intact - VTE Documentation of Mechanical Device: Intermittent pneumatic compression device <Kiki Oquendo - Last Filed: 03/26/17 14:40> Date of Encounter: 03/26/17 Date of admission: 03/22/17 18:07 Primary care physician: Marsha Nathan MD Consults: 03/22/17 16:06 Consult to Occupational Therapy [CONS] Routine Comment: Evaluate, develop and implement POC Reason for Consult: therapy/placement needs Consult to Physical Therapy [CONS] Routine Comment: Evaluate, develop and implement POC Reason for Consult: PT eval 03/23/17 07:30 Consult to Gastroenterology [CONS] Routine Consulting Provider: Gastroenterology Debbie Reason for Consult: suspected upper GI bleed. low H/H Call Completed: No Hospital course: Ms. Burrows is a 81 year old female - Time Spent with Patient Total time spent providing and/or coordinating discharge services: - Constitutional Vitals: Temp Pulse Resp BP Pulse Ox 97.7 F 60 16 141/72 94 03/26/17 11:32 03/26/17 11:32 03/26/17 11:32 03/26/17 11:32 03/26/17 11:32 - Attending Attestation I examined this patient and my medical decision-making was reviewed with the Resident Physician Dr. Guan. I agree with the documented findings, disposition and treatment plan as described except to the extent set forth below. Ms. Burrows is a 81 year old female with a history of coronary artery disease, atrial fibrillation, heart failure status post defibrillator, diabetes, hypertension, who presents to us as a transfer from [facility] where she had presented there from her nursing facility after she was noted to be short of breath with hypoxia in the 80s. She was also severely anemic with Hb @ 6.6. She did go for EGD showed multiple non bleeding angioectasias in stomach, which were treated with argon plasma coagulation. She feels lot better now Abd: Soft, NT Ext: No edema Chest: DBS b/l, No crackles no wheezing a/p 1. Acute anemia due to GI bleed s/p EGD Improved and stable Hb @ 8.6 after 3 U PRBC May need endo capsular study as an out pt Resumed ASA..Doing well. If Hb stays stable in 2-3 days, ok to start her on Plavix too she had 2 stents placed in last month at [facility] cont close monitoring 2. Paroxysmal A fib Rate controlled with Amiodarone not a candidate for anti coag with Xarelto due to high risk fo GI bleed talked to the family about this Medically stable to d/c SNF today
--- NOTE | 2017-03-26 08:44 | Physician Discharge Referral ---
ExtendedCare Referral Info Transfer To: [facility] Provider in Charge: Dr. Calderon Provider in Charge after Transfer: PCP Institutional Level of Care: Skilled - Diagnosis (1) Acute blood loss anemia Priority: Primary Status: Acute (2) Acute respiratory failure with hypoxia Priority: Secondary Status: Acute (3) Afib Priority: Secondary Status: Chronic (4) CAD (coronary artery disease) Priority: Secondary Status: Chronic (5) CKD (chronic kidney disease), stage III Priority: Secondary Status: Chronic (6) Non-insulin dependent type 2 diabetes mellitus Priority: Secondary Status: Chronic (7) Hypertension Priority: Secondary Status: Chronic (8) DVT prophylaxis Priority: Secondary Status: Acute - Transfer Medications Prescriptions: Ferrous Sulfate 325 mg PO BIDWM #30 tablet Home Medications: Acetaminophen [Tylenol Arthritis] 650 mg PO Q6H PRN 03/22/17 [History] Amiodarone [Cordarone] 400 mg PO BID 03/22/17 [History] Aspirin 81 mg PO DAILY 03/22/17 [History] Clopidogrel [Plavix] 75 mg PO DAILY 03/22/17 [History] DULoxetine [Cymbalta] 90 mg PO DAILY 03/22/17 [History] Diltiazem HCl [Diltiazem ER] 120 mg PO DAILY 03/22/17 [History] Ergocalciferol (VITAMIN D2) [Vitamin D2] 50,000 unit PO GONZALEZ 03/22/17 [History] Glimepiride [Amaryl] 4 mg PO DAILY 03/22/17 [History] Mag Hydrox/Al Hydrox/Simeth [Antacid Suspension] 30 ml PO Q4H PRN 03/22/17 [ History] Metoprolol [Lopressor] 50 mg PO BID 03/22/17 [History] Nitroglycerin [Nitrostat] 0.4 mg SL Q5M PRN 03/22/17 [History] Pravastatin Sodium 10 mg PO HS 03/22/17 [History] Ranitidine HCl [Zantac] 300 mg PO DAILY 03/22/17 [History] Zolpidem [Ambien] 5 mg PO HS PRN 03/22/17 [History] amLODIPine [Norvasc] 5 mg PO DAILY 03/22/17 [History] risperiDONE [RisperDAL] 0.25 mg PO BID 03/22/17 [History] Ferrous Sulfate 325 mg PO BIDWM #30 tablet 03/26/17 [Rx] Allergies/Adverse Reactions: 3 Allergy/AdvReac Type Severity Reaction Status Date / Time morphine Allergy See Verified 03/22/17 15:07 Comments Penicillins AdvReac Rash Verified 03/22/17 15:07 - Respiratory Orders Smoking Cessation: Smoking cessation has been advised. For more information, call the [place] [employer] Quit Line at 8-768-XMPM-NOW. - Ancillary Orders May use pressure relief devices daily prn, May go on ROMEO w/family/respon republican w /meds at nurse discretion PRN, May consult with Dentist, Director Of Veterans Affairs, Voting Machine Repairer PRN - Advance Directives Code Status: Full Code - Mobility Orders Ambulate - Rehabiliation Orders Rehab Potential: Fair Rehab Orders: Sternal Precautions, ROM Exercises, Evaluation for Physical Therapy, Evaluation for Occupational Therapy - Treatments Skin tear care topically daily PRN per policy, May check for fecal impaction rectally daily PRN, Fleet enema rectally every other day PRN cleansing purposes - Diet Orders Cardiac CERTIFICATION: I certify that the transfer of the above named patient to an Extended Care Facility is necessary for the continuing treatment of the diagnosis listed. The above information is true and accurate reflection of patient's current condition. Confidential - Redisclosure prohibited without a patient's written consent.
[2017-03-26] MEDS: Insulin LISPRO 300 UNITS/3 ML VIAL SQ SCH (08:47)
[2017-03-26] MEDS: Furosemide 40 MG/4 ML VIAL IVP SCH (08:48)
[2017-03-26] MEDS: Aspirin 81 MG TAB.CHEW PO SCH (08:48)
[2017-03-26] MEDS: Diltiazem CD (24hr) 120 MG CAPSULE PO SCH (08:48)
[2017-03-26] MEDS: amLODIPine 5 MG TABLET PO SCH (08:48)
[2017-03-26] MEDS: risperiDONE 0.25 MG TABLET PO SCH (08:48)
[2017-03-26] MEDS: *HR* Amiodarone 200 MG TABLET PO SCH (11:21)
[2017-03-26] MEDS ORDERED: FLUARIX QUAD 2017-18 36MOS UP/PF 0.5 ML SYRINGE IM ONE (11:32)
[2017-03-26 11:34] VITALS: BP 141/72
== END 2017-03-26 12:52 | DRG 377 ==
LOC: 2NNU → SUATTDRO 18:07
PROVIDERS: ADMIT Internal Medicine; ATTEND Family Medicine

== ENCOUNTER 2017-04-09 21:23 | Inpatient (IN) ==
[2017-04-10] MEDS ORDERED: Naloxone 0.4 MG/ML INJ IVP PRN (00:06)
[2017-04-10] MEDS ORDERED: Acetaminophen 325 MG TABLET PO PRN (00:06)
[2017-04-10] MEDS ORDERED: *HR* Dextrose 50 % in Water (Syg) 50 ML SYRINGE IVP PRN (00:57)
[2017-04-10] MEDS ORDERED: D5% in Water 1,000 ML IVC PRN (00:57)
[2017-04-10] MEDS ORDERED: Dextrose Gel 15 GM/37.5 ML TUBE PO PRN ×2 (00:57)
--- NOTE | 2017-04-10 01:31 | Internal Med History&Physical ---
Date of Encounter: 04/10/17 Time of Encounter: 00:30 Assessment and Plan (1) Lower GI bleed Current visit: Yes Status: Acute Patient with acute lower GI bleed/hematochezia. We will keep nothing by mouth. Consult gastroenterology for possible colonoscopy. Monitor blood counts. Continue PPI. Moderate risk for complications. (2) Anemia Current visit: Yes Status: Chronic Hemoglobin levels are improved compared to her last hospitalization. But she had does have reported new GI bleed. Will monitor blood counts closely. Qualifiers: Anemia type: iron deficiency Qualified Code(s): D50.0 - Iron deficiency anemia secondary to blood loss (chronic) (3) BALDEV (acute kidney injury) Current visit: Yes Status: Acute Patient has mild acute kidney injury with creatinine of 1.29. We will monitor renal function. Gentle hydration. (4) Diabetes mellitus Current visit: Yes Status: Chronic Currently patient will be nothing by mouth. Will monitor blood sugars. Diabetic diet when patient is able to eat. Sliding scale insulin. 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 We will resume home medications. Monitor blood pressure closely. If needed, we will place her on intravenous medications as needed to control blood pressure Qualifiers: Hypertension type: essential hypertension Qualified Code(s): I10 - Essential (primary) hypertension (6) DVT prophylaxis Current visit: Yes Status: Chronic With SCDs alone for now due to GI bleed. (7) Afib Current visit: Yes Status: Chronic Currently in paced rhythm. No longer on anticoagulation due to recent GI bleed. Qualifiers: Atrial fibrillation type: unspecified Qualified Code(s): I48.91 - Unspecified atrial fibrillation Internal Medicine - H&P: HPI Chief complaint: Bleeding per rectum Admitted From: Emergency Dept Plans for Post Hospital Care: Home History of present illness: Ms. Burrows is a 81 year old female patient with history of diabetes, coronary artery disease, hypertension, atrial fibrillation, congestive heart failure, presented to the ER at [facility] with complaints of bleeding per rectum. Patient had been hospitalized here earlier this month and was discharged on 03/26/17 following hospitalization for acute blood loss anemia and hypoxia. At that time patient had been on dual antiplatelet therapy with aspirin and Plavix for recent stents and also was on Xarelto for Afib. Xarelto was stopped then but patient continued to take aspirin and Plavix. 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 She will endoscopy was recommended as outpatient. Patient reports doing well till yesterday morning when she began to notice blood in her stools. She had more episodes during the course of the day but has not had any new episodes since coming to the ER at [facility]. She denies any dizziness or lightheadedness. No palpitations. At the time of her discharge, her hemoglobin level was 8.6. She was discharged on iron supplementation. She denies any abdominal pain at this time. No chest pain nausea or vomiting. No hematemesis. Past Med Surg Social Fam HX - Past Medical History Attestation: Yes The following information was validated with the patient. Source: patient Medical history: arthritis, atrial fibrillation, CHF, coronary artery disease, dementia, diabetes, GERD, hypertension, renal disease Psychiatric history: depression - Past Surgical History Surgical History: cholecystectomy, hysterectomy, pacemaker/AICD - Social History Smoking Status: Never smoker Smokeless Tobacco Status: No Alcohol use: none Drug use: none - Additional Family History Additional family history: Reviewed and found to be noncontributory at this time Internal Medicine - H&P: Meds Acetaminophen [Tylenol Arthritis] 650 mg PO Q6H PRN 03/22/17 [History] Amiodarone [Cordarone] 400 mg PO BID 03/22/17 [History] Aspirin 81 mg PO DAILY 03/22/17 [History] Clopidogrel [Plavix] 75 mg PO DAILY 03/22/17 [History] DULoxetine [Cymbalta] 90 mg PO DAILY 03/22/17 [History] Diltiazem HCl [Diltiazem ER] 120 mg PO DAILY 03/22/17 [History] Ergocalciferol (VITAMIN D2) [Vitamin D2] 50,000 unit PO GONZALEZ 03/22/17 [History] Glimepiride [Amaryl] 4 mg PO DAILY 03/22/17 [History] Mag Hydrox/Al Hydrox/Simeth [Antacid Suspension] 30 ml PO Q4H PRN 03/22/17 [ History] Metoprolol [Lopressor] 50 mg PO BID 03/22/17 [History] Nitroglycerin [Nitrostat] 0.4 mg SL Q5M PRN 03/22/17 [History] Pravastatin Sodium 10 mg PO HS 03/22/17 [History] Ranitidine HCl [Zantac] 300 mg PO DAILY 03/22/17 [History] Zolpidem [Ambien] 5 mg PO HS PRN 03/22/17 [History] amLODIPine [Norvasc] 5 mg PO DAILY 03/22/17 [History] risperiDONE [RisperDAL] 0.25 mg PO BID 03/22/17 [History] Ferrous Sulfate 325 mg PO BIDWM #30 tablet 03/26/17 [Rx] 3 Allergy/AdvReac Type Severity Reaction Status Date / Time morphine Allergy See Verified 03/22/17 15:07 Comments Penicillins AdvReac Rash Verified 03/22/17 15:07 All Systems PM: A 10-system review of systems was performed and is negative for pertinent findings except as documented above in the HPI. - Constitutional Constitutional: no chills, no fever(s), no night sweats - EENT Eyes: no change in vision, no discharge, no pain, no photophobia Ears: no ear discharge, no ear pain, no tinnitus Nose, mouth and throat: no dysphagia, no nasal discharge, no neck pain, no sore throat - Cardiovascular Cardiovascular ROS IM: no chest pain, no diaphoresis, no dyspnea, no lightheadedness, no palpitations, no syncope - Respiratory Respiratory: no cough, no dyspnea, no wheezing, no excessive phlegm production - Gastrointestinal Gastrointestinal: hematochezia, no abdominal pain, no diarrhea, no hematemesis, no melena, no nausea, no vomiting - Genitourinary Genitourinary: no change in urinary stream, no dysuria, no flank pain, no hematuria - Musculoskeletal Musculoskeletal ROS IM: no numbness, no tingling - Integumentary Integumentary IM: no rash, no unusual bruising - Neurological Neurological ROS: no confusion, no convulsions, no focal weakness, no numbness, no tingling, no tremor(s) - Hematologic/Lymphatic Hematologic/Lymphatic: no easy bruising - Constitutional Vitals: Temp Pulse Resp BP Pulse Ox 98.0 F 60 16 163/73 96 04/09/17 23:54 04/09/17 23:54 04/09/17 23:54 04/09/17 23:54 04/09/17 23:54
[2017-04-10] MEDS ORDERED: Nitroglycerin 0.4 MG TAB.SUBL SL PRN (01:46)
[2017-04-10 04:03] LABS: Basophils % 0.4 %; Eosinophils # 0.2 K/mcL (0.0-0.6); Eosinophils % 2.3 %; Hematocrit 26.8 % (35.3-44.9); Hemoglobin 7.9 g/dL (11.5-15.4); Immature Granulocytes % 0.3 % (0-4); Lymphocytes # 1.6 K/mcL (0.6-4.6); Lymphocytes % 21.9 %; Mean Corpuscular HGB Conc 29.5 g/dL (31.6-35.5); Mean Corpuscular Hemoglobin 27.5 pg (28.0-33.3); Mean Corpuscular Volume 93.4 fL (83.0-100.0); Mean Platelet Volume 10.2 fL (9.4-12.4); Monocytes # 0.8 K/mcL (0.0-1.3); Monocytes % 11.3 %; Neutrophils # 4.5 K/mcL (1.6-8.9); Nucleated Red Blood Cells 0.6 /100 WBC (0); Platelet Count 199 K/mcL (140-400); Red Blood Count 2.87 M/mcL (3.82-4.97); Red Cell Distribution Width 18.7 % (11.5-14.5); Segmented Neutrophils % 63.8 %
[2017-04-10 04:22] LABS: BUN/Creatinine Ratio 27 (6-26); Blood Urea Nitrogen 25 mg/dL (8-23); Calcium 8.6 mg/dL (8.6-10.3); Carbon Dioxide 26 mEq/L (23-29); Chloride 112 mEq/L (98-107); Glucose 93 mg/dL (70-105); Osmolality,Calculated 296 (280-300); Potassium 3.8 mEq/L (3.5-5.1); Sodium 141 mEq/L (136-145); eGFR For African Americans > 60 (> 60); eGFR For Non-African Americans 58 (> 60)
[2017-04-10] MEDS: Insulin LISPRO 300 UNITS/3 ML VIAL SQ SCH ×3 (07:30→20:09)
[2017-04-10 10:13] LABS: Hematocrit 26.5 % (35.3-44.9); Hemoglobin 7.9 g/dL (11.5-15.4)
[2017-04-10] MEDS ORDERED: *HR* Midazolam HCl 2 MG/2 ML VIAL ONE (10:48)
[2017-04-10] MEDS ORDERED: *HR* FentaNYL (PF) 100 MCG/2 ML VIAL ONE (10:48)
[2017-04-10] MEDS ORDERED: Tetracaine/Benzocaine/Butamben 200MG/SPRAY (100SPY/BOT) MM ONE (11:21)
[2017-04-10] MEDS ORDERED: *HR* Midazolam HCl 2 MG/2 ML VIAL IVP ONE (11:21)
[2017-04-10] MEDS ORDERED: Simethicone 40 MG/0.6 ML MLS IR ONE (11:21)
[2017-04-10] MEDS ORDERED: *HR* FentaNYL (PF) 100 MCG/2 ML VIAL IVP ONE (11:21)
[2017-04-10] MEDS ORDERED: cefTRIAXone 1,000 MG in Water for inj. (sterile) 20 ML 10 ML IVP ONE (12:22)
--- NOTE | 2017-04-10 12:35 | Gastroenterology Consult Note ---
Date of Encounter: 04/10/17 Time of Encounter: 08:00 - Time Spent With Patient Total time spent is greater than 50% in coordination of care (as documented) at patient's floor/unit and/or counseling patient: GI History of Present Illness - Data of Consult Requesting Physician: Emeli Rangel MD - Consult Narrative History of present illness: Ms. Burrows is a 81 year old female who presents with history of hematochezia back to the emergency room and anemia. Last week she underwent upper endoscopy where arteriovenous malformations were noted and apparently ablated and clipped. However she recalls because back with a similar presentation. Her hemoglobin has drifted down to 7.9 g percent and grams percent and 2 units of packed cells plan are planned no history of any chest pain or shortness of breath the plan would would be to do an upper endoscopy possibly looking for the same AVM or possibly another AVM in that area bleeding A long discussion with the patient and his and her daughter in the room and a daughter signed an informed consent for Mr. Kelsey Patient apparently had a stent placed January and so she was on a combination of aspirin and Plavix and Xarelto was opened and discontinued last admission and she has been on aspirin and Plavix since Past Med Surg Social [facility] - Past Medical History Medical history: arthritis, atrial fibrillation, CHF, coronary artery disease, dementia, diabetes, GERD, hypertension, renal disease Psychiatric history: depression - Past Surgical History Surgical History: cholecystectomy, hysterectomy, pacemaker/AICD - Social History Smoking Status: Never smoker Smokeless Tobacco Status: No Alcohol use: none Drug use: none Review of Systems: The conjunctival exam was significant for marked pallor - Gastrointestinal Gastrointestinal: Present: hematochezia - Constitutional Vitals: Temp Pulse Resp BP Pulse Ox 97.9 F 65 16 165/81 97 04/10/17 11:05 04/10/17 11:30 04/10/17 11:30 04/10/17 11:30 04/10/17 11:30 - Eye Eye exam: Present: EOMI, PERRL - GI/Abdominal GI/Abdominal exam: Present: soft - Rectal Rectal exam: Present: deferred - Extremities Exam Extremities exam: Present: full ROM, warm - Neurological Exam Neurological exam: Present: alert, altered, oriented X3, no focal deficits - Psychiatric Psychiatric exam: Present: normal affect, normal mood Results - Labs CBC & Chem 7: 04/10/17 09:57 04/10/17 03:02 Labs: Last Result Calcium 8.6 mg/dL (8.6-10.3) 04/10/17 03:02 Entire Visit Hgb 7.9 g/dL (11.5-15.4) L 04/10/17 09:57 Hct 26.5 % (35.3-44.9) L 04/10/17 09:57 Consult Discharge Plan - Plan Referrals: Marsha Nathan MD [Primary Care Provider] -
[2017-04-10] MEDS ORDERED: 0.9 % Sodium Chloride 1,000 ML ONE (13:25)
[2017-04-10] MEDS: Aspirin 81 MG TAB.CHEW PO SCH (13:38)
[2017-04-10] MEDS: *HR* Amiodarone 200 MG TABLET PO SCH ×2 (13:38→20:08)
[2017-04-10] MEDS: risperiDONE 0.25 MG TABLET PO SCH ×2 (13:38→20:08)
[2017-04-10] MEDS: Diltiazem CD (24hr) 120 MG CAPSULE PO SCH (13:39)
[2017-04-10] MEDS: amLODIPine 5 MG TABLET PO SCH (13:39)
--- NOTE | 2017-04-10 16:09 | Event Note ---
Date of Encounter: 04/10/17 Time of Encounter: 09:20 81-year-old female with history of CAD status post recent stent placement in February 2017, atrial fibrillation, diabetes, is admitted with lower GI bleed. Patient has underlying dementia, unable to provide history. Had recent admission for upper GI bleed, underwent EGD with photocoagulation of angioectasia in stomach, and Xarelto was held, she was continued on ASA and Plavix. SHe was seen at bedside, not in distress. Underwent EGD and noted to have bleeding angioectasia in stomach and duodenum s/ p APC; case d/w Cardiology, patient will need to be DAPT with ASA and Plavix in light of recent PCI/stents; transfuse 2units PRBC and continue to monitor Hb;
[2017-04-10] MEDS ORDERED: 0.9 % Sodium Chloride 250 ML ONE (19:48)
[2017-04-11 00:37] LABS: Hematocrit 32.1 % (35.3-44.9)
[2017-04-11 00:40] LABS: Hemoglobin 10.1 g/dL (11.5-15.4)
[2017-04-11 04:58] LABS: Basophils % 0.5 %; Eosinophils # 0.2 K/mcL (0.0-0.6); Hematocrit 33.2 % (35.3-44.9); Hemoglobin 10.1 g/dL (11.5-15.4); Immature Granulocytes % 0.2 % (0-4); Lymphocytes # 1.3 K/mcL (0.6-4.6); Lymphocytes % 22.9 %; Mean Corpuscular HGB Conc 30.4 g/dL (31.6-35.5); Mean Corpuscular Hemoglobin 27.7 pg (28.0-33.3); Mean Corpuscular Volume 91.2 fL (83.0-100.0); Mean Platelet Volume 9.8 fL (9.4-12.4); Monocytes # 0.7 K/mcL (0.0-1.3); Monocytes % 13.2 %; Neutrophils # 3.2 K/mcL (1.6-8.9); Platelet Count 185 K/mcL (140-400); Red Blood Count 3.64 M/mcL (3.82-4.97); Red Cell Distribution Width 17.5 % (11.5-14.5); Segmented Neutrophils % 59.2 %
[2017-04-11 05:03] LABS: Hematocrit 33.1 % (35.3-44.9); Hemoglobin 10.5 g/dL (11.5-15.4)
[2017-04-11 05:23] LABS: BUN/Creatinine Ratio 18 (6-26); Blood Urea Nitrogen 14 mg/dL (8-23); Calcium 8.8 mg/dL (8.6-10.3); Carbon Dioxide 25 mEq/L (23-29); Chloride 111 mEq/L (98-107); Glucose 104 mg/dL (70-105); Osmolality,Calculated 293 (280-300); Potassium 3.7 mEq/L (3.5-5.1); Sodium 141 mEq/L (136-145); eGFR For African Americans > 60 (> 60); eGFR For Non-African Americans > 60 (> 60)
[2017-04-11] MEDS: Insulin LISPRO 300 UNITS/3 ML VIAL SQ SCH ×3 (07:30→17:19)
[2017-04-11] MEDS: risperiDONE 0.25 MG TABLET PO SCH ×2 (12:35→20:10)
[2017-04-11] MEDS: Diltiazem CD (24hr) 120 MG CAPSULE PO SCH (12:35)
[2017-04-11] MEDS: *HR* Amiodarone 200 MG TABLET PO SCH ×2 (12:35→20:10)
[2017-04-11] MEDS: amLODIPine 5 MG TABLET PO SCH (12:35)
[2017-04-11] MEDS: Aspirin 81 MG TAB.CHEW PO SCH (12:35)
--- NOTE | 2017-04-11 13:58 | Gastroenterology Progress Note ---
Date of Encounter: 04/09/17 Time of Encounter: 11:00 - Time Spent With Patient Total time spent is greater than 50% in coordination of care (as documented) at patient's floor/unit and/or counseling patient: - Subjective Interval history: Patient feeling much better. No further BMs. Hemoglobin went up to 10.4 post 2 units of packed cells. Ooaing AVM in duodenal bulb cauterized yesterday at EGD. HEENT: negative Abdomen: soft, non tender. A/P UGI bleed secondary to AVM resolved post EGD and cautery. - Constitutional Vitals: Temp Pulse Resp BP Pulse Ox 98.0 F 60 20 183/92 92 04/11/17 11:22 04/11/17 11:22 04/11/17 11:22 04/11/17 11:22 04/11/17 11:22 Results - Labs CBC & Chem 7: 04/12/17 02:52 04/11/17 04:39 Labs: Last Result Calcium 8.8 mg/dL (8.6-10.3) 04/11/17 04:39 Entire Visit Hgb 10.5 g/dL (11.5-15.4) L 04/11/17 04:39 Hct 33.1 % (35.3-44.9) L 04/11/17 04:39 Consult Discharge Plan - Plan Additional Instructions: F/up with PCP in 1-2 weeks Referrals: Marsha Nathan MD [Primary Care Provider] -
--- NOTE | 2017-04-11 15:07 | Internal Med Progress Note ---
Date of Encounter: 04/11/17 Time of Encounter: 15:05 - Assessment and plan (1) GI bleed Current Visit: Yes Status: Acute Assessment and plan: Patient presented with reported rectal bleed. Noted to have acute on chronic anemia due to blood loss. GI has been consulted, patient underwent EGD, which showed reflux esophagitis, multiple angiodysplastic bleeding lesions in the stomach and duodenum status post photocoagulation. Continue to monitor hemoglobin, currently stable. Advance to soft diet as tolerated. Plan of care explained to patient's daughter at bedside. Discussed about continuing aspirin and Plavix in light of recent coronary stents. 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 Continue to monitor closely. (3) Afib Current Visit: Yes Status: Chronic Assessment and plan: Currently rate controlled. Continue telemetry monitoring, beta tami. Anticoagulation with Xarelto has been held since previous admission due to GI bleed. This has been discussed with patient's daughter, who understands the risk of stroke, however anticoagulation needs to be held at the present time due to ongoing GI bleed. Qualifiers: Atrial fibrillation type: paroxysmal Qualified Code(s): I48.0 - Paroxysmal atrial fibrillation (4) BALDEV (acute kidney injury) Current Visit: Yes Status: Resolved Assessment and plan: Improved with PRBC transfusion, likely related to anemia. (5) Diabetes mellitus Current Visit: Yes Status: Chronic Assessment and plan: Blood sugars noted to be appropriately controlled. Continue Accu-Chek blood glucose monitoring with sliding scale insulin as needed. Diabetic diet. 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 Increase Norvasc, continue beta tami and calcium channel tami. Will use when necessary IV hydralazine for appropriate blood pressure control. Qualifiers: Hypertension type: essential hypertension Qualified Code(s): I10 - Essential (primary) hypertension (7) CAD (coronary artery disease) Current Visit: Yes Status: Chronic Assessment and plan: Confirmed with daughter, that the patient had 2 stents placed in February 2017. Continue aspirin, Plavix, statin, beta tami. Qualifiers: Coronary Disease-Associated Artery/Lesion type: [place] artery [place] vs. transplanted heart: [place] heart Associated angina: without angina Qualified Code(s): I25.10 - Atherosclerotic heart disease of [place] coronary artery without angina pectoris - Subjective Interval history: Reports feeling better; no abdominal pain, nausea, vomiting; tolerates clear liquids; - Constitutional Vitals: Temp Pulse Resp BP Pulse Ox 98.0 F 60 20 183/92 92 04/11/17 11:22 04/11/17 11:22 04/11/17 11:22 04/11/17 11:22 04/11/17 11:22 General appearance: Present: A&O X 2 (poor memory), answers questions appropriately - Respiratory Respiratory exam: Present: CTAB. Absent: accessory muscle use, rales, rhonchi, wheezes - Cardiovascular Cardiovascular exam: Present: irregular rhythm, +S1, +S2. Absent: diastolic murmur, gallop, rubs, systolic murmur - GI/Abdominal GI/Abdominal exam: Present: normal bowel sounds, soft, no peritoneal signs. Absent: distended, tenderness - Extremities Exam Extremities exam: Present: pedal edema, warm, radial pulses palpable and symmetrical. Absent: calf tenderness, cyanotic Internal Medicine: Result - Labs CBC & Chem 7: 04/11/17 04:39 04/11/17 04:39 Labs: Short CBC 04/11/17 04/11/17 04/11/17 Range/Units 00:30 04:39 04:39 WBC 5.5 (4.3-11.1) K/mcL Hgb 10.1 L D 10.5 L 10.1 L (11.5-15.4) g/dL Hct 32.1 L 33.1 L 33.2 L (35.3-44.9) % Plt Count 185 (140-400) K/mcL Neutrophils # 3.2 (1.6-8.9) K/mcL BMP 04/11/17 04:39 Sodium 141 Potassium 3.7 Chloride 111 H Carbon Dioxide 25 BUN 14 Creatinine 0.80 Glucose 104 Calcium 8.8 Consult Discharge Plan - Plan Referrals: Marsha Nathan MD [Primary Care Provider] -
[2017-04-11] MEDS ORDERED: amLODIPine 5 MG TABLET PO SCH (15:15)
[2017-04-11] MEDS ORDERED: Insulin LISPRO 300 UNITS/3 ML VIAL SQ SCH (21:00)
[2017-04-12 03:43] LABS: Basophils % 0.5 %; Eosinophils # 0.2 K/mcL (0.0-0.6); Eosinophils % 3.2 %; Hematocrit 34.6 % (35.3-44.9); Hemoglobin 10.7 g/dL (11.5-15.4); Immature Granulocytes % 0.2 % (0-4); Lymphocytes # 1.3 K/mcL (0.6-4.6); Lymphocytes % 21.1 %; Mean Corpuscular HGB Conc 30.9 g/dL (31.6-35.5); Mean Corpuscular Hemoglobin 28.4 pg (28.0-33.3); Mean Corpuscular Volume 91.8 fL (83.0-100.0); Mean Platelet Volume 10.2 fL (9.4-12.4); Monocytes # 0.8 K/mcL (0.0-1.3); Monocytes % 12.6 %; Neutrophils # 3.9 K/mcL (1.6-8.9); Platelet Count 198 K/mcL (140-400); Red Blood Count 3.77 M/mcL (3.82-4.97); Red Cell Distribution Width 17.6 % (11.5-14.5); Segmented Neutrophils % 62.4 %
[2017-04-12] MEDS: Insulin LISPRO 300 UNITS/3 ML VIAL SQ SCH ×2 (08:11→12:04)
[2017-04-12] MEDS: risperiDONE 0.25 MG TABLET PO SCH (08:12)
[2017-04-12] MEDS: Diltiazem CD (24hr) 120 MG CAPSULE PO SCH (08:12)
[2017-04-12] MEDS: *HR* Amiodarone 200 MG TABLET PO SCH (08:12)
[2017-04-12] MEDS: Aspirin 81 MG TAB.CHEW PO SCH (08:12)
[2017-04-12 11:45] VITALS: BP 132/74
--- NOTE | 2017-04-12 13:04 | Discharge Summary ---
Date of Encounter: 04/12/17 Time of Encounter: 11:30 - Discharge Diagnosis (1) GI bleed Priority: Primary Status: Acute Qualifiers: GI bleed type/associated pathology: angiodysplasia of stomach and duodenum Qualified Code(s): K31.811 - Angiodysplasia of stomach and duodenum with bleeding (2) Acute blood loss anemia Priority: Primary Status: Acute (3) Afib Priority: Secondary Status: Chronic Qualifiers: Atrial fibrillation type: paroxysmal Qualified Code(s): I48.0 - Paroxysmal atrial fibrillation (4) BALDEV (acute kidney injury) Priority: Primary Status: Resolved (5) Diabetes mellitus Priority: Secondary Status: Chronic Qualifiers: Diabetes mellitus type: type 2 Diabetes mellitus complication status: with unspecified complications Diabetes mellitus buttermaker continuous churn insulin use: without fci use Qualified Code(s): E11.8 - Type 2 diabetes mellitus with unspecified complications (6) Hypertension Priority: Secondary Status: Chronic Qualifiers: Hypertension type: essential hypertension Qualified Code(s): I10 - Essential (primary) hypertension (7) CAD (coronary artery disease) Priority: Secondary Status: Chronic Qualifiers: Coronary Disease-Associated Artery/Lesion type: [place] artery [place] vs. transplanted heart: [place] heart Associated angina: without angina Qualified Code(s): I25.10 - Atherosclerotic heart disease of [place] coronary artery without angina pectoris - Discharge Medications Home Medications: Acetaminophen [Tylenol Arthritis] 650 mg PO Q6H PRN 03/22/17 [History] Amiodarone [Cordarone] 400 mg PO BID 03/22/17 [History] Aspirin 81 mg PO DAILY 03/22/17 [History] Clopidogrel [Plavix] 75 mg PO DAILY 03/22/17 [History] DULoxetine [Cymbalta] 90 mg PO DAILY 03/22/17 [History] Diltiazem HCl [Diltiazem ER] 120 mg PO DAILY 03/22/17 [History] Ergocalciferol (VITAMIN D2) [Vitamin D2] 50,000 unit PO GONZALEZ 03/22/17 [History] Glimepiride [Amaryl] 4 mg PO DAILY 03/22/17 [History] Mag Hydrox/Al Hydrox/Simeth [Antacid Suspension] 30 ml PO Q4H PRN 03/22/17 [ History] Metoprolol [Lopressor] 50 mg PO BID 03/22/17 [History] Nitroglycerin [Nitrostat] 0.4 mg SL Q5M PRN 03/22/17 [History] Pravastatin Sodium 10 mg PO HS 03/22/17 [History] Ranitidine HCl [Zantac] 300 mg PO DAILY 03/22/17 [History] amLODIPine [Norvasc] 5 mg PO DAILY 03/22/17 [History] risperiDONE [RisperDAL] 0.25 mg PO BID 03/22/17 [History] Ferrous Sulfate 325 mg PO BIDWM #30 tablet 03/26/17 [Rx] Insulin ASPART [NovoLOG] 3 unit SQ QID 04/10/17 [History] metFORMIN [Glucophage] 500 mg PO BIDWM 04/10/17 [History] Oxycodone HCl/Acetaminophen [Percocet 5-325 mg Tablet] 1 tab PO Q6H PRN #10 [Rx] Zolpidem [Ambien] 5 mg PO HS PRN #10 04/12/17 [Rx] Allergies/Adverse Reactions: 3 Allergy/AdvReac Type Severity Reaction Status Date / Time morphine Allergy See Verified 04/10/17 13:19 Comments Penicillins AdvReac Rash Verified 04/10/17 13:19 Date of admission: 04/10/17 09:48 Primary care physician: Marsha Nathan MD Consults: 04/10/17 04:10 Consult to Gastroenterology [CONS] Routine Consulting Provider: [facility] Reason for Consult: Lower GI bleed Call Completed: Yes Discharging clinician: Emeli Rangel Anticipated date of discharge: 04/12/17 - Patient Status Disposition: Transfer SNF Condition: Fair Functional capacity at discharge: bed bound Overall status at discharge: patient is progressing back to baseline - Discharge Instructions Follow Up With: Marsha Nathan MD [Primary Care Provider] - Additional Instructions: F/up with PCP in 1-2 weeks - Diet and Activity Activity: as per physical therapy, wear oxygen at all times Diet: diabetic diet, low fat, low cholesterol, low salt diet Hospital course: Ms. Burrows is a 81 year old female with the above medical problems and recnet admission to [facility] for GI bleed, was sent from residential due to rectal bleeding. Patient is a poor historian due to underlying dementia but reportedly had bright red bleeding per rectum. She was noted to have 1-1.5g drop in Hb from baseline and received 2units PRBC after which it remained stable around 10.5. SHe was kept NPO with iV hydration and GI was consulted; underwent EGD which showed bleeding angiodysplastic lesions in stomach and duodenum which were cauterized with APC. She is currently stable and tolerates soft oral diet; after d/w GI, she is deemed stable for discharge back to residential. Of note, she has h/o- CAD s/p recent PCI/stents in Feb 2017 along with atrial fibrillation; Xarelto was held during recent admission; ASA and Plavix is to be continued at this time due to recent stents; this has been discussed with GI, Cardiology and patient's POA- daughter. - Time Spent with Patient Total time spent providing and/or coordinating discharge services: Greater than 30 minutes (45 min) - Constitutional Vitals: Temp Pulse Resp BP Pulse Ox 98.1 F 60 14 132/74 93 04/12/17 11:41 04/12/17 11:41 04/12/17 11:41 04/12/17 11:41 04/12/17 11:41 General appearance: Present: A&O X 2 (poor memory), answers questions appropriately - Cardiovascular Cardiovascular exam: Present: irregular rhythm, +S1, +S2. Absent: diastolic murmur, gallop, rubs, systolic murmur
--- NOTE | 2017-04-12 13:21 | Physician Discharge Referral ---
ExtendedCare Referral Info Provider in Charge: Emeli Rangel Provider in Charge after Transfer: PCP Institutional Level of Care: Skilled - Diagnosis (1) GI bleed Priority: Primary Status: Acute (2) Acute blood loss anemia Priority: Primary Status: Acute (3) Afib Priority: Secondary Status: Chronic (4) BALDEV (acute kidney injury) Priority: Primary Status: Resolved (5) Diabetes mellitus Priority: Secondary Status: Chronic (6) Hypertension Priority: Secondary Status: Chronic (7) CAD (coronary artery disease) Priority: Secondary Status: Chronic Expected Duration of Placement: 3 weeks Prognosis: Fair Aware of Diagnosis: Family Aware of Prognosis: Family - Transfer Medications Home Medications: Acetaminophen [Tylenol Arthritis] 650 mg PO Q6H PRN 03/22/17 [History] Amiodarone [Cordarone] 400 mg PO BID 03/22/17 [History] Aspirin 81 mg PO DAILY 03/22/17 [History] Clopidogrel [Plavix] 75 mg PO DAILY 03/22/17 [History] DULoxetine [Cymbalta] 90 mg PO DAILY 03/22/17 [History] Diltiazem HCl [Diltiazem ER] 120 mg PO DAILY 03/22/17 [History] Ergocalciferol (VITAMIN D2) [Vitamin D2] 50,000 unit PO GONZALEZ 03/22/17 [History] Glimepiride [Amaryl] 4 mg PO DAILY 03/22/17 [History] Mag Hydrox/Al Hydrox/Simeth [Antacid Suspension] 30 ml PO Q4H PRN 03/22/17 [ History] Metoprolol [Lopressor] 50 mg PO BID 03/22/17 [History] Nitroglycerin [Nitrostat] 0.4 mg SL Q5M PRN 03/22/17 [History] Pravastatin Sodium 10 mg PO HS 03/22/17 [History] Ranitidine HCl [Zantac] 300 mg PO DAILY 03/22/17 [History] Zolpidem [Ambien] 5 mg PO HS PRN 03/22/17 [History] amLODIPine [Norvasc] 5 mg PO DAILY 03/22/17 [History] risperiDONE [RisperDAL] 0.25 mg PO BID 03/22/17 [History] Ferrous Sulfate 325 mg PO BIDWM #30 tablet 03/26/17 [Rx] Insulin ASPART [NovoLOG] 3 unit SQ QID 04/10/17 [History] metFORMIN [Glucophage] 500 mg PO BIDWM 04/10/17 [History] Oxycodone HCl/Acetaminophen [Percocet 5-325 mg Tablet] 1 tab PO Q6H PRN #10 [Rx] Allergies/Adverse Reactions: 3 Allergy/AdvReac Type Severity Reaction Status Date / Time morphine Allergy See Verified 04/10/17 13:19 Comments Penicillins AdvReac Rash Verified 04/10/17 13:19 - Respiratory Orders Oxygen / L per min (2L/min via [place]) Smoking Cessation: Smoking cessation has been advised. For more information, call the [place] Tobacco Quit Line at 7-233-VDAN-NOW. - Advance Directives Power of Case Sealer: Yes (Daughter) Code Status: Full Code - Mobility Orders Ambulate - Rehabiliation Orders Rehab Potential: Fair Rehab Orders: ROM Exercises, Evaluation for Physical Therapy, Evaluation for Occupational Therapy - Diet Orders No Concentrated Sweets (diabetic), Cardiac CERTIFICATION: I certify that the transfer of the above named patient to an Extended Care Facility is necessary for the continuing treatment of the diagnosis listed. The above information is true and accurate reflection of patient's current condition. Confidential - Redisclosure prohibited without a patient's written consent.
[2017-04-12] MEDS ORDERED: FLUARIX QUAD 2017-18 36MOS UP/PF 0.5 ML SYRINGE IM ONE (13:33)
== END 2017-04-12 14:48 | DRG 378 ==
LOC: 2ANU → SUATTDRO 23:14
PROVIDERS: ADMIT Internal Medicine; ATTEND Internal Medicine